=== PATIENT | female | born 1980 | race Caucasian/White ===

== ENCOUNTER 2016-12-17 18:03 | Inpatient (IN) | payer OTHER ==
[2016-12-17 19:49] LABS: % IMMATURE GRANULYOCYTES 0.2 % (0.0-1.1); ABSOLUTE IMMATURE GRANULOCYTES 0.02 10^3/uL (0.00-0.10); ADD DIFF? NO; ADD MORPH? NO; ADD SCAN? NO; ATYPICAL LYMPHOCYTE FLAG 0 (0-99); FRAGMENT RBC FLAG 0 (0-99); HEMATOCRIT 42.3 % (38.0-47.0); HEMOGLOBIN 14.4 g/dL (12.6-16.3); LEFT SHIFT FLG 0 (0-99); LIPEMIA HEMOLYSIS FLAG 90 (0-99); MEAN CELL HEMOGLOBIN 30.3 pg (27.9-34.1); MEAN CELL VOLUME 89.1 fL (81.5-99.8); MEAN PLATELET VOLUME 9.7 fL (8.7-11.7); PLATELET CLUMPS FLAG 0 (0-99); PLATELET COUNT 324 10^3/uL (150-400); RED BLOOD CELL COUNT 4.75 10^6/uL (4.18-5.33); RED CELL DISTRIBUTION WIDTH 12.7 % (11.5-15.2)
[2016-12-17 20:05] LABS: ANION GAP 11 mEq/L (8-16); CALCIUM 10.4 mg/dL (8.5-10.4); CARBON DIOXIDE 23 mEq/l (22-31); CHLORIDE 105 mEq/L (97-110); CREATININE 0.9 mg/dL (0.6-1.0); ETHANOL SERUM < 10 mg/dL (0-10); GLOMERULAR FILTRATION RATE > 60; GLUCOSE 116 mg/dL (70-100); POTASSIUM 3.7 mEq/L (3.5-5.2); SALICYLATE < 1.0 mg/dL (2.0-20.0); SODIUM 139 mEq/L (134-144)
--- NOTE | 2016-12-17 22:19 | EDPHY ---
Mental Health General Previous Psychiatric History: previous suicide attempt, substance abuse, depression Smoking Status: Never smoked Time Patient Placed on M1 Hold: 19:45 Time of Transfer of Care: 01:00 Course: patient remained stable over course of my shift, no additional interventions, eval by mental health Narrative: CHIEF COMPLAINT: euphoria, depression, substance abuse HISTORY OF PRESENT ILLNESS: 36-year-old female presents emergency department reporting auditory and visual hallucinations. Patient reports I do not want to live anymore." Patient reports previous suicide attempt 1 year ago. Patient states she drinks alcohol regularly and has been taking 6-8 Benadryl every day. She reports this is not in a suicide attempt. Patient reports she takes her Prozac as prescribed. She denies suicidal thoughts at this time, denies homicidal thoughts. Patient reports feeling like she cannot think straight. She denies any recent cough or cold, no abdominal pain or chest pain. REVIEW OF SYSTEMS: A comprehensive 10 point review of systems is otherwise negative aside from elements mentioned in the history of present illness. Physical Exam Gen: Alert and Oriented, NAD HEENT: PERRL, moist mucous membranes NECK: no meningismus CV: regular rate and regular rhythm PULM: CTAB, no wheezes ABDOMEN: soft, non tender to palpation, BS present BACK: No CVA tenderness NEURO: Neurologically grossly intact EXTREMITIES: normal appearing SKIN: no rash or break in skin on exposed skin PSYCH: Flat affect, denies suicidal ideations, denies homicidal ideations. She reports auditory and visual hallucinations. (Maggy Lopez) Medical Decision Makin-report passed on to Dr. Hogan at the end of my shift. Evaluation is complete and they are seeking placement. (Maggy Lopez) 0701: No acute events overnight. Patient signed over to Dr. Browne at 7am. Patient here on M1 hold suicidal ideation, substance abuse, auditory and visual hallucinations. History of depression. Patient is pending placement. (Mauri Hogan) 0700 Patient signed out to me from Dr. Hogan pending placement. 1040 patient accepted to [address] [place] [address] dagmar onofre. The EMTALA has been completed by me (Michael Browne) - Objective Vital Signs: Initial Vital Signs Temperature (C) 36.2 C 12/17/16 18:07 Heart Rate 130 H 12/17/16 18:07 Respiratory Rate 18 12/17/16 18:07 Blood Pressure 153/100 H 12/17/16 18:07 O2 Sat (%) 97 12/17/16 18:07 O2 Delivery Mode Room Air Allergies/Adverse Reactions: Penicillins Allergy (Verified 12/17/16 18:06) Home Medications: Medication Instructions Recorded Prozac 10 MG (*) 12/17/16 Medications Given: Discontinued Medications Lorazepam (Ativan) 1 mg PO EDNOW ONE Stop: 12/18/16 08:05 Last Admin: 12/18/16 08:12 Dose: 1 mg Laboratory Results: Laboratory Results 12/17/16 19:35 12/17/16 19:35 12/17/16 12/17/16 22:27 19:35 Total Bilirubin 0.7 mg/dL mg/dL (0.1-1.4) Conjugated Bilirubin 0.6 mg/dL H mg/dL (0.0-0.5) Unconjugated Bilirubin 0.1 mg/dL mg/dL (0.0-1.1) AST 100 IU/L H IU/L (14-46) ALT 93 IU/L H IU/L (9-52) Alkaline Phosphatase 108 IU/L IU/L (38-126) Total Protein 7.5 g/dL g/dL (6.3-8.2) Albumin 4.3 g/dL g/dL (3.5-5.0) TSH 1.590 uIU/mL uIU/mL (0.465-4.680) Urine Opiates Screen NEGATIVE (NEGATIVE) Urine Barbiturates NEGATIVE (NEGATIVE) Ur Phencyclidine Scrn NEGATIVE (NEGATIVE) Ur Amphetamine Screen NEGATIVE (NEGATIVE) U Benzodiazepines Scrn NEGATIVE (NEGATIVE) Urine Cocaine Screen NEGATIVE (NEGATIVE) U Marijuana (THC) Screen NEGATIVE (NEGATIVE) Departure - Departure Disposition: [facility] IP Clinical Impression: Acute psychosis, Polysubstance abuse Condition: Fair Referrals: NONE *PRIMARY CARE P,. [Primary Care Provider] - As per Instructions
[2016-12-18 01:52] LABS: ALBUMIN 4.3 g/dL (3.5-5.0); BILIRUBIN,TOTAL 0.7 mg/dL (0.1-1.4); BILIRUBIN-CONJUGATED 0.6 mg/dL (0.0-0.5); BILIRUBIN-UNCONJUGATED 0.1 mg/dL (0.0-1.1); TOTAL PROTEIN 7.5 g/dL (6.3-8.2)
[2016-12-18] MEDS ORDERED: LORazepam 1 MG TAB PO ONE (08:04)
[2016-12-18] MEDS ORDERED: MAGNESIUM HYDROXIDE 30 ML UDCUP PO PRN (14:34)
[2016-12-18] MEDS ORDERED: OLANZapine DISINTEGR 10 MG TAB PO PRN ×2 (14:34→15:09)
[2016-12-18] MEDS ORDERED: MAG HYDROX/AL HYDROX/SIMETH 30 ML UDCUP PO PRN (14:34)
[2016-12-18] MEDS ORDERED: ACETAMINOPHEN 325 MG TAB PO PRN (14:34)
[2016-12-18] MEDS ORDERED: LORazepam 0.5 MG TAB PO PRN ×2 (14:34→15:09)
[2016-12-18] MEDS ORDERED: NICOTINE POLACRILEX 2 MG GUM B PRN ×2 (14:34→15:09)
[2016-12-18] MEDS: diphenhydrAMINE 25 MG CAP PO SCH (20:23)
[2016-12-18] MEDS: POTASSIUM CITRATE 10 MEQ TAB PO SCH (20:23)
[2016-12-18] MEDS ORDERED: POTASSIUM CITRATE 10 MEQ TAB PO SCH (21:00)
[2016-12-18] MEDS ORDERED: diphenhydrAMINE 25 MG CAP PO SCH (22:00)
[2016-12-19] MEDS: diphenhydrAMINE 25 MG CAP PO SCH (06:42)
[2016-12-19] MEDS ORDERED: PANTOPRAZOLE SODIUM 40 MG TAB PO SCH (09:00)
[2016-12-19] MEDS ORDERED: FLUoxetine 20 MG CAP PO SCH (09:00)
[2016-12-19] MEDS ORDERED: FLUoxetine 10 MG CAP PO SCH (09:00)
[2016-12-19] MEDS ORDERED: PROMETHAZINE HCL 25 MG TAB PO PRN (12:50)
[2016-12-19] MEDS ORDERED: PROMETHAZINE HCL 25 MG SUPPR PR PRN (12:50)
[2016-12-19] MEDS ORDERED: THIAMINE HCL 100 MG TAB PO ONE (12:50)
--- NOTE | 2016-12-19 13:48 | PDHOSCONS ---
Hospitalist Consult Hospitalist Consult: Consulted service: Internal Medicine Reason for consultation: Medical evaluation Requesting physician: Dr. Judson Sheets History of present illness: Patient is a 36-year-old female who presented to the ED with auditory and visual hallucinations. Per ED report, patient said she did not want to live anymore. Patient has been drinking alcohol regularly. She also admits to consuming cough syrup and Benadryl in quantities greater than recommended over the counter. She often combines the 3 substances. She also has a previous suicide attempt 1 year ago. Patient denies any suicidal ideation currently. She refuses to talk during most of this interview, so much of the information has been obtained from her medical chart. She currently denies suicidal or homicidal ideations. She admits to feeling anxiety and stress. She admits to also taking espe-keo-jmjrgrx cough syrup, both for recreation and to help sleep. Past medical history: Chronic kidney stones Past surgical history: Kidney stone removals-lithotripsy. Medications: Prozac, dose unknown. Additionally, patient takes over-the- counter Benadryl and cough syrup at excessive doses. Allergies: Penicillin. Social history: Patient lives in [place] with her parents. She drinks alcohol regularly but is unable to quantify how much and how often. Patient consumes gdqg-pkf-qqljced sleep aids and cough syrup and admits to taking more than the recommended doses. She denies any smoking. She denies other recreational drugs. 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 Family history: Mother has MS. Review of systems: 10 point review of systems was conducted and is negative except per HPI Physical exam: General: The patient is an obese female who is lethargic but arousable and in no acute distress. HEENT: normocephalic. Mucous membranes moist. Neck: trachea midline. Abd: soft and nondistended. Musculoskeletal: Normal muscle tone and bulk. Neuro: cranial nerves II XII grossly intact. Intact gross motor and sensory function. Psych: Depressed mood/blunted affect. Skin: No pallor. Heme/lymph: No peripheral edema. Vitals: Reviewed Labs: Reviewed. Impression and plan: Accidental over ingestion of multiple substances Auditory and visual hallucinations, resolved Lethargy, secondary to over ingestion versus psychiatric disorder Major depressive disorder Mildly abnormal liver function tests Mild hyperglycemia Mild leukocytosis Hypertension, resolved -patient is currently on legal hold, awaiting to be evaluated by Behavioral specialists. -defer substance abuse counseling to be a viral health specialist. -borderline leukocytosis and hyperglycemia her likely reactive to stress from over-ingestion. -patient should get outpatient follow-up for ongoing health issues, including evaluation of mildly abnormal liver function tests. Recommendation: Patient is medically stable. Thank you for the consultation.
[2016-12-19] MEDS: FLUoxetine 10 MG CAP PO SCH (13:52)
[2016-12-19] MEDS: FLUoxetine 20 MG CAP PO SCH (13:52)
[2016-12-19] MEDS: chlordiazePOXIDE 25 MG CAP PO PRN ×3 (13:53→21:22)
[2016-12-19] MEDS: POTASSIUM CITRATE 10 MEQ TAB PO SCH ×2 (13:54→21:02)
[2016-12-19] MEDS: PANTOPRAZOLE SODIUM 40 MG TAB PO SCH (13:54)
--- NOTE | 2016-12-19 19:30 | BAPA ---
[f rep st] ADMISSION PSYCHIATRIC ASSESSMENT Corrected report IDENTIFICATION: The patient is a 36-year-old single female, who was admitted to the hospital secondary to auditory and visual hallucinations along with suicidal ideation. CHIEF COMPLAINT: The patient did not have a chief complaint. The information for this dictation was actually obtained from the patient's records secondary to the fact that the patient could not be aroused to answer questions for this evaluation. HISTORY OF PRESENT ILLNESS: As mentioned earlier, the patient came into the emergency department, reporting some auditory and visual hallucinations. While there she stated, "I don't want to live anymore." There were concerns because she had a suicide attempt approximately a year earlier. She reported that she had been using excessive amounts of alcohol, Benadryl, and dextromethorphan cough syrup. While in the emergency department, she was given her Prozac. PSYCHIATRIC HISTORY: She was first treated for a mental illness at age 17. It appears that the patient has most recently been treated for depression with Prozac. In the ER, she mentioned possibly being on other unnamed medications. Her primary care doctor is prescribing these. She has been hospitalized at [facility] in the past. She reports being diagnosed with depression and anxiety in the past. She believes bipolar disorder was ruled out in the past. She has been on Risperdal, Seroquel, and Paxil along with possibly other medications in the past. She gained weight on Seroquel, and the Paxil made her feel worse. It also appears that she had a suicide attempt approximately a 3- 4 years ago. She overdosed on Benadryl and Vodka, having to have her stomach pumped. She reports bad experiences with three psychiatrists in the past. One wanted money she did not have and one "ruined" her marriage by saying something negative about her in front of her . SUBSTANCE ABUSE HISTORY: The patient is reporting regular drinking of alcohol along with taking approximately 8 or more Benadryl one or more times a day and drinking dextromethorphan cough syrup on a daily basis. She started drinking at age 20. She had a few years of sobriety. She had three DUIs. She has been drinking cough syrup for the last few months. She has also abused cocaine, methamphetamine, and cannabis. She has been to [place] and at least one other substance abuse treatment program. Her toxicology screen was negative in the ER. FAMILY PSYCHIATRIC HISTORY: Paternal uncle committed suicide. A paternal aunt is a "wilson of the state." MEDICAL HISTORY: The patient has allergies to penicillin. It appears she has a history of gastroesophageal reflux disease. She was taking Zantac and Prilosec in the community. She also has a history of chronic kidney stones and irritable bowel syndrome. LABORATORY VALUES: Her CBC shows an elevated white blood count of 10.47. Her CMP showed a glucose of 116; however, this was not a fasting glucose. Her AST was elevated at 100 and ALT was elevated at 93. test showed that she was not ; it was negative. Her toxicology screen showed nothing of note. REVIEW OF SYSTEMS: She was reporting that she could not think straight. She reports anxiety with panic attacks. She has poor sleep. She denies going days without sleep. She has racing thoughts. She has a history of cutting and possibly other self injurious behaviors. She also was reporting auditory and visual hallucinations; however, it is unknown how long she has been experiencing these.She was observed to have a flat affect, diminished interest, diminished pleasure, hopelessness, worthlessness, withdrawal, sad mood, and psychomotor retardation in the ER. Later in the date on this unit she reported hypersexuality. She actually was posting information on [employer] sites after ten years of celibacy. SOCIAL HISTORY: She has two half sisters and one full sister. She is . She has no children. She has a dog and two cats. She has been living with her parents in [place]. She reports her mother has MS and her parents argue a lot. She has a BA in psychology. She works at [employer]. She worked at [employer] for 6 years. She spent five months in correction after getting her third DUI ( violation of probation). She has no friends. She denies any abuse. She spends her non work hours watching television. MENTAL STATUS EXAMINATION: The patient is a female with short black hair who was found lying in her bed. When this technical publications writer approached her and spoke the patient's name, the patient did say "huh"; however, she did not open her eyes, she did not get up, and she had no further responses after that. IMPRESSION: This is a 36-year-old single female reportedly with a history of depression who was being treated with Prozac. The patient also has a history of substance abuse of srny-xsa-qoboltn substances including dextromethorphan and Benadryl. She also has abused alcohol, cannabis, cocaine, and methamphetamine. It is unclear how long the patient has been using substances nor is it clear how much she has been using on a daily basis. She did come into the hospital secondary to some suicidal ideation and hallucinations. The patient is very sedated at this point in time. She was given Zyprexa, Ativan, and Benadryl today, which along with her previous Benadryl, probably is responsible for her current sedation. This made it impossible to talk to the patient to get any history. She does have a history of behaviors that are suggestive of borderline personality disorder, so she might be exaggerating her level of sedation. DIAGNOSES: Stephens I: 1. Unspecified depressive disorder. 2. Polysubstance Dependence Stephens II: Rule out Borderline Personality Disorder Stephens III: 1. Status post overdose anticholinergic medication. 2. Allergy to penicillin. Stephens IV: Difficulties secondary to addiction. Stephens V: Global Assessment of Functioning equal to 20. CRITERIA FOR ADMISSION: The patient does meet criteria for admission to the hospital given she was reporting some suicidal ideation along with hallucinations. PLAN OF TREATMENT: At this time, we will try to minimize medications, especially anything that is sedating, given the patient is most likely withdrawing from the anticholinergic effects of Benadryl along with the dextromethorphan and alcohol. She will be put on a CIWA protocol to monitor for any alcohol withdrawal symptoms, and she will be put on seizure precautions to monitor her for any seizures. Actually, this will be part of the alcohol withdrawal protocol. The DMT also can cause seizures when someone is going through withdrawal. We will monitor her for any type of psychotic symptoms given that all 3 substances that she was using are potentially culprits- cause psychosis. It is unclear if the patient has any type of biological psychotic disorder. /[id number]/MODL Maryan WT, 12/21/16, virgil MCKEON
[2016-12-19] MEDS: THIAMINE HCL 100 MG TAB PO SCH (19:42)
[2016-12-19] MEDS: FOLIC ACID 1 MG TAB PO SCH (19:42)
[2016-12-19] MEDS: OLANZapine DISINTEGR 5 MG TAB PO PRN (22:15)
[2016-12-19] MEDS ORDERED: OLANZapine DISINTEGR 5 MG TAB PO ONE (23:09)
[2016-12-19] MEDS ORDERED: OLANZapine DISINTEGR 5 MG TAB ONE (23:15)
[2016-12-19] MEDS ORDERED: OLANZapine 5 MG TAB PO PRN (23:18)
[2016-12-20] MEDS ORDERED: QUEtiapine FUMARATE 300 MG TAB PO ONE (01:25)
[2016-12-20] MEDS: POTASSIUM CITRATE 10 MEQ TAB PO SCH ×2 (12:35→21:21)
[2016-12-20] MEDS: FLUoxetine 20 MG CAP PO SCH (12:35)
[2016-12-20] MEDS: FLUoxetine 10 MG CAP PO SCH (12:35)
[2016-12-20] MEDS: PANTOPRAZOLE SODIUM 40 MG TAB PO SCH (12:36)
[2016-12-20] MEDS: FOLIC ACID 1 MG TAB PO SCH (12:36)
[2016-12-20] MEDS: THIAMINE HCL 100 MG TAB PO SCH (12:36)
[2016-12-20] MEDS: MULTIVITAMINS 1 EACH TAB PO SCH (12:53)
[2016-12-20] MEDS: chlordiazePOXIDE 25 MG CAP PO PRN (13:35)
[2016-12-20] MEDS ORDERED: OLANZapine 5 MG TAB PO ONE (14:00)
[2016-12-20] MEDS ORDERED: OLANZapine DISINTEGR 10 MG TAB PO PRN (15:48)
[2016-12-20] MEDS ORDERED: QUEtiapine FUMARATE 300 MG TAB PO PRN (16:56)
--- NOTE | 2016-12-20 18:00 | SOAPPROG ---
SOAP Progress Note Assessment/Plan: Assessment: Patient with unspecified schizophrenia spectrum and other psychotic disorder along with other hallucinogen Use Disorder, severe, in forced remission a controlled environment, alcohol use disorder, severe, in forced remission in a controlled environment, and a rule out of borderline personality disorder reporting no reason to live. She wants to be allowed to leave and end it all. She was noted to be crying and banging her head against the wall when she could not find her brush. She revealed a history of self abuse. She is not safe to leave. She reports auditory and visual hallucinations, but there is no evidence of responding to internal stimuli. The hallucinations may be a by- product of substance withdrawal. She did get placed on emergency medications and in seclusion last night due to agitation. She was banging her head against the window. Plan: Will place on line of sigh for 24 hours due to self harming behaviors. Will try to her old records (parents agreed to bring them in on their next visit). Will start Abilify for mood and hallucinations. Went over the risks and benefits , which she understand (main concern weight gain). Will use prn Zyprexa Zydis for agitation, aggression, and psychosis. Will continue prn Seroquel for sleep if need tonight. Went over the risks and benefits (concerned about weight gain). Encouraged to be out of bed as much as possible. She spends much of her time sleeping. Continue suicide precautions. Recommend an inpatient dual diagnosis program to help her with her substance abuse problems and to better clarify her psychiatric issues. This appears to be a bipolar type mood disorder; therefore, will focus on mood stabilizers and stop the antidepressant. 12/20/16 17:47 12/20/16 18:07 Subjective: She reports she feels hopeless and depressed. She was knocking her head because she can't find her brush. She reports perviously cutting herself with a lip stick container and a mirror. She reports a desire "to go find someone to fuck and get high or drunk and hope to just ." Depression - 8-9/10 (10 the worst) . Anxiety 8-9/10. Sleep- okay last night with Seroquel. +racing thoughts. Objective: Vital Signs Temp Pulse Resp BP Pulse Ox 36.0 C 140 H 20 130/70 H 90 L 12/19/16 21:00 12/20/16 13:47 12/20/16 13:47 12/20/16 13:47 12/20/16 13:47 female sitting on the bed rocking back and forth. Poor eye contact. Speech- depressed tone. Mood- "depressed." Affect- blunted. Thought Process- goal directed. Thought Content - passive SI. No HI. +AH/VH, but no RIS. Insight and judgment - poor. - Time Spent With Patient Time Spent With Patient: 60 minutes - Pending Discharge Pending Discharge Within 24 Hours: No Pending Discharge Within 48 Hours: No ICD10 Worksheet Patient Problems: Problems Problem Status Onset Acute psychosis Acute Polysubstance abuse Acute
[2016-12-20] MEDS: ARIPiprazole 10 MG TAB PO SCH (19:27)
--- NOTE | 2016-12-21 11:21 | SOAPPROG ---
SOAP Progress Note Assessment/Plan: Assessment: 36yo DWF who lives with her parents, and is employed, with a long hx of depression, but also substance use, most recently abusing dextromethorphan, diphenhydramine and alcohol. She self -presented to ED reporting AH/VH and SI, was placed on an M1, and admitted to for stabilization. Since admission, on 12/19 late night she required S/R and Emeds for agitation and self-harming behavior of banging head. Then she was placed on LOS due to inability to contract for safety. Sabina II features noted. Was started on Abilify 10mg hs and prozac was d/cd on admission due to concerns for possible underlying bipolar spectrum mood disorder. 12/21/16 13:38 Per staff, pt slept 5.5hr, but spending most of time in bed. Wanting prn meds to stay asleep and help with anxiety. 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 Pt will only accept Chocolate milk and dangelo Ensure, but missed breakfast today. On eval, reports +depr, "Tired", and having "no hope anymore". states she is "just going through the motions...my life is so shitty...I hate living with my parents, they bicker all the time..." States she has had chronic low self-esteem , never feeling as worthy as others, feels "ugly and fat" and again reiterating she has "no hope", feels "my situation will never change, I can't get out of it ". When asked to clarify, pt responded "everything, being me." Asks for prn to "shut off my mind", but unable to clarify what to shut off, "it' s a blur". Did volunteer hx of depression, but noting more recently "periods of going really fast, feeling reckless, wanting to act on something stupid, screw anyone , and spending money...I called the tanner rotary drum continuous process on myself in the past". Clinically did not appear manic or hypomanic. Unable to provide clear history of significant period of sobriety except perhaps "4 or 5 months a few years ago", after returned home to parents following a relapse while at a sober living facility in [place] and got "kicked out" from the program. Reports was on antidepr med during this time, while in and out of subst treatment. Admits concern about weight, but adds that she really doesn't care anymore about this or anything else. Long pause before she unconvincingly contracted for safety as she continued to endorse no hope and no reason to live. Has not been present in milieu, not attending groups or coming out for meals. MSE: lying in bed, eyes closed through most of interview, opening only with prompt and request for some eye contact. eventually sat up briefly during interview but maintained downcast gaze. low vol/rate speech, mood "tired" and depressed, affect depressed/dysphoric and intermittently tearful. thoughts- little spontaneity, self-deprecating, linear without delusions, denied current AH/VH but endorsed experiencing some this AM, +SI passive, but only after long delay reported "I won't try to hurt myself in here". i/j-impaired. cognition grossly intact. PLAN: cont on M1. likely will need STC cont LOS for another 24hr, pending increased visibility in milieu and consistent conrad for safety. concern for acting out behavior present, and was on Emeds and S/R <48hr ago. will encourage group attendance and meals. change zypr 10mg prn to 5mg prn. cont Abilify 10mg hs as started recently will recheck labs, incl Mg and Phos, repeat LFT, also consider d/c Potassium bid , unclear why on this- will ask for hospitalist input on pt not eating and her K + bid Cont on CIWA Objective: Vital Signs Temp Pulse Resp BP Pulse Ox 36.9 C 64 12 122/71 H 94 12/21/16 06:00 12/21/16 06:00 12/21/16 06:00 12/21/16 06:00 12/21/16 06:00 Medications Generic Name Dose Route Start Last Admin Trade Name Freq PRN Reason Stop Dose Admin Folic Acid 1 mg 12/19/16 16:00 12/20/16 12:36 Folic Acid PO 12/21/16 23:59 1 mg DAILY CYNTHIA Promethazine HCl 25 mg 12/19/16 12:50 Phenergan Rectal WA 06/17/17 12:49 TID PRN Nausea/Vomiting, Can't Take PO Pantoprazole Sodium 40 mg 12/19/16 09:00 12/20/16 12:36 Protonix PO 06/17/17 08:59 40 mg DAILY CYNTHIA Potassium Citrate 10 meq 12/18/16 21:00 12/20/16 21:21 Urocit-K PO 06/16/17 20:59 10 meq BID CYNTHIA Aripiprazole 10 mg 12/20/16 20:00 12/20/16 19:27 Abilify PO 06/18/17 19:59 10 mg DAILY CYNTHIA Chlordiazepoxide HCl 25 - 50 mg 12/19/16 12:50 12/20/16 13:35 Librium PO 06/17/17 12:49 50 mg Q4HRS PRN CIWA Protocol Protocol Multivitamins 1 each 12/20/16 09:00 12/20/16 12:53 Tab-A-Danyelle PO 06/18/17 08:59 1 each DAILY CYNTHIA Olanzapine 10 mg 12/20/16 15:48 12/20/16 19:28 Zyprexa Zydis PO 06/18/17 17:59 10 mg Q4 PRN Agitation, Psychosis Thiamine HCl 100 mg 12/21/16 09:00 Vitamin B-1 PO 06/19/17 08:59 DAILY CYNTHIA Promethazine HCl 25 mg 12/19/16 12:50 Phenergan PO 06/17/17 12:49 TID PRN Nausea/Vomiting, Use 2nd Nicotine Polacrilex 2 mg 12/18/16 15:09 Nicorette B 06/16/17 14:33 Q1HR PRN Nicotine withdrawal Laboratory Tests 12/17/16 12/17/16 12/17/16 19:35 19:35 19:35 WBC 10.47 H Hgb 14.4 Hct 42.3 MCV 89.1 Plt Count 324 Sodium 139 Potassium 3.7 Chloride 105 Carbon Dioxide 23 Anion Gap 11 BUN 10 Creatinine 0.9 Calcium 10.4 Total Bilirubin AST ALT Alkaline Phosphatase TSH Beta HCG, Qual NEGATIVE 12/17/16 19:35 WBC Hgb Hct MCV Plt Count Sodium Potassium Chloride Carbon Dioxide Anion Gap BUN Creatinine Calcium Total Bilirubin 0.7 AST 100 H ALT 93 H Alkaline Phosphatase 108 TSH 1.590 Beta HCG, Qual - Pending Discharge Pending Discharge Within 24 Hours: No Pending Discharge Within 48 Hours: No ICD10 Worksheet Patient Problems: Problems Problem Status Onset Acute psychosis Acute Polysubstance abuse Acute
[2016-12-21] MEDS: OLANZapine DISINTEGR 5 MG TAB PO PRN ×2 (13:14→18:04)
[2016-12-21] MEDS: MULTIVITAMINS 1 EACH TAB PO SCH (13:15)
[2016-12-21] MEDS: POTASSIUM CITRATE 10 MEQ TAB PO SCH (13:15)
[2016-12-21] MEDS: THIAMINE HCL 100 MG TAB PO SCH (13:16)
[2016-12-21] MEDS: FOLIC ACID 1 MG TAB PO SCH (13:16)
[2016-12-21] MEDS: ARIPiprazole 10 MG TAB PO SCH (13:16)
[2016-12-21] MEDS: PANTOPRAZOLE SODIUM 40 MG TAB PO SCH (13:16)
--- NOTE | 2016-12-21 14:18 | HOSPPROG ---
Hospitalist Progress Note Assessment/Plan: 36 yo female, new to me today, admitted to due to suicidal ideation, depression, poly substance abuse. Known prior h/o suicidal ideation and prior ETOH abuse. 1. Elevated LFT's 2/2 ETOH and substance abuse. Possible hepatitis though no evidence of jaundice. Will recheck LFT's and check hepatitis panel 2. K supplement; reason unclear. Will stop 3. Depression: continues and under treatment 4. ETOH abuse and substance abuse. no signs of withdrawal. Continue librium as you have ordered. Subjective: Depressed. Does not answer questions with much information. Denies fever, cough, N. vomiting Objective: Vital Signs Temp Pulse Resp BP Pulse Ox 36.9 C 64 12 122/71 H 94 12/21/16 06:00 12/21/16 06:00 12/21/16 06:00 12/21/16 06:00 12/21/16 06:00 - Physical Exam Constitutional: chronically ill appearing, other (depressed) Eyes: PERRL, anicteric sclera Ears, Nose, Mouth, Throat: moist mucous membranes, hearing normal Cardiovascular: regular rate and rhythym, no murmur, rub, or gallop Respiratory: no respiratory distress, no rales or rhonchi, clear to auscultation Gastrointestinal: normoactive bowel sounds, soft, non-tender abdomen, no palpable masses, other (no organomegaly) Skin: warm Musculoskeletal: full muscle strength Neurologic: AAOx3, CN II-XII Intact Psychiatric: depressed ICD10 Worksheet Patient Problems: Problems Problem Status Onset Acute psychosis Acute Polysubstance abuse Acute
[2016-12-21] MEDS: chlordiazePOXIDE 25 MG CAP PO PRN ×3 (14:35→22:46)
[2016-12-21] MEDS: NICOTINE 21 MG/24 HR PATCH TD SCH (16:17)
[2016-12-21] MEDS ORDERED: QUEtiapine FUMARATE 300 MG TAB PO ONE (21:00)
[2016-12-22] MEDS: MULTIVITAMINS 1 EACH TAB PO SCH (11:21)
[2016-12-22] MEDS: THIAMINE HCL 100 MG TAB PO SCH (11:21)
[2016-12-22] MEDS: NICOTINE 21 MG/24 HR PATCH TD SCH (11:21)
[2016-12-22] MEDS: ARIPiprazole 10 MG TAB PO SCH (11:21)
[2016-12-22] MEDS: PANTOPRAZOLE SODIUM 40 MG TAB PO SCH (11:21)
[2016-12-22] MEDS: chlordiazePOXIDE 25 MG CAP PO PRN ×4 (12:23→22:55)
[2016-12-22 12:31] LABS: ALANINE AMINOTRANSFERASE 85 IU/L (9-52); ALBUMIN 3.6 g/dL (3.5-5.0); ALKALINE PHOSPHATASE 82 IU/L (38-126); ANION GAP 11 mEq/L (8-16); ASPARTATE AMINOTRANSFERASE 65 IU/L (14-46); BILIRUBIN,TOTAL 0.6 mg/dL (0.1-1.4); CALCIUM 9.4 mg/dL (8.5-10.4); CARBON DIOXIDE 23 mEq/l (22-31); CHLORIDE 105 mEq/L (97-110); CREATININE 0.8 mg/dL (0.6-1.0); GLOMERULAR FILTRATION RATE > 60; GLUCOSE 86 mg/dL (70-100); MAGNESIUM 1.8 mg/dL (1.6-2.3); POTASSIUM 3.5 mEq/L (3.5-5.2); SODIUM 139 mEq/L (134-144); TOTAL PROTEIN 6.2 g/dL (6.3-8.2)
--- NOTE | 2016-12-22 15:17 | SOAPPROG ---
SOAP Progress Note Assessment/Plan: Assessment: Plan: 12/22/16 15:19 Appears depressed. On Abilify. Denies SI and very shortly after cuts wrists. Very characterological. Utilizing help-seeking, help-rejecting behaviors. Very stuck. Will [facility], though will d/c CIWA tomorrow unless much more prominent withdrawal becomes apparent. Will call pt's father who has called numerous times to schedule an appointment with me to talk about pt. Subjective: Pt seen, discussed with staff, chart reviewed. She is a 36 y/o CF with hx of mood problems, personality/character issues and substance abuse. Has been on LOS due to inability to contract for safety, SI and hx of cutting. She has been isolating, spending most of her time in bed. Refuses to go to groups. Has refused all meals in past 24 hours. Makes dramatic statements about "wanting to make it all end" and "I just want to go away." Insisted she could keep herself safe earlier so I d/c'd her LOS. Before the RN could execute the order, she went to the bathroom, pulled the curtain and made numerous cuts on both wrists with a small piece of plastic she found. Appreciate Dr. Meza' input. Additional labs all nl. Remains on CIWA scoring for tachycardia and anxiety. Clearly sedate with 25mg of Librium. Objective: Vital Signs Temp Pulse Resp BP Pulse Ox 36.9 C 112 H 16 92/45 L 92 12/22/16 14:00 12/22/16 14:00 12/22/16 14:00 12/22/16 14:00 12/22/16 14:00 Laboratory Results 12/22/16 07:10 MSE: Lying in bed, refuses to open eyes or speak. I returned three times before she would talk. Once she did, she was fairly guarded, though interactive. Disheveled. Affect is blunted, dysphoric. Mood is "bad." TP linear. TC reveals no psychosis. Denied active SI or intent to harm herself to me. - Time Spent With Patient Time Spent With Patient: 25" - Pending Discharge Pending Discharge Within 24 Hours: No Pending Discharge Within 48 Hours: No ICD10 Worksheet Patient Problems: Problems Problem Status Onset Acute psychosis Acute Polysubstance abuse Acute
[2016-12-22] MEDS: OLANZapine DISINTEGR 5 MG TAB PO PRN ×2 (15:32→21:46)
[2016-12-22] MEDS ORDERED: traZODone 100 MG TAB PO ONE (21:30)
[2016-12-23] MEDS: ARIPiprazole 10 MG TAB PO SCH (10:18)
[2016-12-23] MEDS: PANTOPRAZOLE SODIUM 40 MG TAB PO SCH (10:18)
[2016-12-23] MEDS: NICOTINE 21 MG/24 HR PATCH TD SCH (10:19)
[2016-12-23] MEDS: THIAMINE HCL 100 MG TAB PO SCH (10:19)
[2016-12-23] MEDS: MULTIVITAMINS 1 EACH TAB PO SCH (10:27)
--- NOTE | 2016-12-23 11:45 | SOAPPROG ---
SOAP Progress Note Assessment/Plan: Assessment: Plan: 12/22/16 15:19 Appears depressed. On Abilify. Denies SI and very shortly after cuts wrists. Very characterological. Utilizing help-seeking, help-rejecting behaviors. Very stuck. Will [facility], though will d/c CIWA tomorrow unless much more prominent withdrawal becomes apparent. Will call pt's father who has called numerous times to schedule an appointment with me to talk about pt. 12/23/16 11:45 Remains regressed, inactive. Continues to employ help-seeking, help-rejecting behaviors. Will [facility] for now, institute behavioral plan. Subjective: Pt seen, discussed with staff. States she doesn't want to talk to me. I described for her our plan to have her out of her room to eat meals and then to stay at least an hour afterward. She doesn't reply but when I ask her if she needs anything, she states she wants a sleeping pill so she can take it right now and go back to sleep for the rest of the day. Remains on LOS. No further SIB. Objective: Vital Signs Temp Pulse Resp BP Pulse Ox 36.6 C 110 H 24 H 84/55 L 92 12/23/16 10:00 12/23/16 10:00 12/22/16 22:48 12/23/16 10:00 12/23/16 10:00 Laboratory Results 12/22/16 07:10 MSE: Standing at mirror applying makeup. Makes minimal eye contact. Affect is blunted, stable. Mood is "bad." TP abbreviated, possibly blocked. TC reveals self-report of "whispers" that are non-command in nature. Guarded about SI, does not answer with me. - Time Spent With Patient Time Spent With Patient: 15" - Pending Discharge Pending Discharge Within 24 Hours: No Pending Discharge Within 48 Hours: No ICD10 Worksheet Patient Problems: Problems Problem Status Onset Acute psychosis Acute Polysubstance abuse Acute
[2016-12-23] MEDS: OLANZapine DISINTEGR 5 MG TAB PO PRN ×3 (12:56→21:03)
[2016-12-23] MEDS ORDERED: LORazepam 1 MG TAB ONE (14:21)
[2016-12-23] MEDS ORDERED: OLANZapine 10 MG TAB PO ONE (14:30)
[2016-12-23] MEDS ORDERED: LORazepam 1 MG TAB PO ONE (14:30)
[2016-12-23] MEDS: traZODone 100 MG TAB PO SCH (20:57)
[2016-12-23] MEDS: QUEtiapine FUMARATE 100 MG TAB PO PRN (22:23)
[2016-12-23] MEDS ORDERED: QUEtiapine FUMARATE 100 MG TAB PO ONE (23:30)
[2016-12-24] MEDS: OLANZapine DISINTEGR 5 MG TAB PO PRN (01:50)
[2016-12-24] MEDS: MULTIVITAMINS 1 EACH TAB PO SCH (09:10)
[2016-12-24] MEDS: ARIPiprazole 10 MG TAB PO SCH (09:10)
[2016-12-24] MEDS: PANTOPRAZOLE SODIUM 40 MG TAB PO SCH (09:10)
[2016-12-24] MEDS: NICOTINE 21 MG/24 HR PATCH TD SCH (09:10)
[2016-12-24] MEDS: THIAMINE HCL 100 MG TAB PO SCH (09:10)
[2016-12-24] MEDS: QUEtiapine FUMARATE 50 MG TAB PO PRN ×3 (11:16→20:02)
--- NOTE | 2016-12-24 11:19 | SOAPPROG ---
SOAP Progress Note Assessment/Plan: Assessment: Plan: 12/22/16 15:19 Appears depressed. On Abilify. Denies SI and very shortly after cuts wrists. Very characterological. Utilizing help-seeking, help-rejecting behaviors. Very stuck. Will [facility], though will d/c CIWA tomorrow unless much more prominent withdrawal becomes apparent. Will call pt's father who has called numerous times to schedule an appointment with me to talk about pt. 12/23/16 11:45 Remains regressed, inactive. Continues to employ help-seeking, help-rejecting behaviors. Will [facility] for now, institute behavioral plan. 12/24/16 11:20 Behavioral plan effective in getting pt to interact. She seems genuine in her desire for change. The character of her reported AH's is convincing for MDD with psychosis. Will continue Abilify 10mg, monitor behaviors per plan. Will provide information on ECT, consider as a possible next step. Subjective: Pt seen, discussed with staff at length in morning rounds. All agree on a "reverse room" protocol to encourage pt to interact. I spoke with her father yesterday by phone and he voices ongoing concern that she is very depressed and suicidal. She states to me today, "I just want to leave and find someone to have sex with, do drugs and drink alcohol." She states she has not had an intimate relationship of any kind in ten years and laments this. She reports getting no pleasure from life and is "just going through the motions." She reports chronic depression that is not made better by antidepressants. She feels helpless and hopeless and states, "I can't go on like this any more." She also reports the emergence of AH's over the past two weeks. She hears a muffled voice telling her she is worthless and "a really bad person." This coincides with a significant downturn in her mood. Objective: Vital Signs Temp Pulse Resp BP Pulse Ox 36.4 C 114 H 16 150/66 H 95 12/24/16 02:27 12/24/16 02:27 12/24/16 02:27 12/24/16 02:27 12/24/16 02:27 Laboratory Results 12/22/16 07:10 MSE: Anxious, rocking, but cooperative and interactive. Speech is nl. Affect is constricted, anxious, dysphoric. Mood is "depressed, terrible." TP linear. TC reveals ongoing AH's. - Time Spent With Patient Time Spent With Patient: 35" - Pending Discharge Pending Discharge Within 24 Hours: No Pending Discharge Within 48 Hours: No ICD10 Worksheet Patient Problems: Problems Problem Status Onset Acute psychosis Acute Polysubstance abuse Acute
[2016-12-24] MEDS ORDERED: LORazepam 1 MG TAB PO ONE (13:00)
[2016-12-24] MEDS: traZODone 100 MG TAB PO SCH ×2 (20:02→20:03)
[2016-12-24] MEDS: ACETAMINOPHEN 325 MG TAB PO PRN (21:40)
--- NOTE | 2016-12-25 12:34 | SOAPPROG ---
SOAP Progress Note Assessment/Plan: Assessment: Plan: 12/22/16 15:19 Appears depressed. On Abilify. Denies SI and very shortly after cuts wrists. Very characterological. Utilizing help-seeking, help-rejecting behaviors. Very stuck. Will [facility], though will d/c CIWA tomorrow unless much more prominent withdrawal becomes apparent. Will call pt's father who has called numerous times to schedule an appointment with me to talk about pt. 12/23/16 11:45 Remains regressed, inactive. Continues to employ help-seeking, help-rejecting behaviors. Will [facility] for now, institute behavioral plan. 12/24/16 11:20 Behavioral plan effective in getting pt to interact. She seems genuine in her desire for change. The character of her reported AH's is convincing for MDD with psychosis. Will continue Abilify 10mg, monitor behaviors per plan. Will provide information on ECT, consider as a possible next step. 12/25/16 12:34 Improved today. Will d/c reverse room protocol to allow pt to voluntarily comply. This will limit further regression and infantilization. If she does not comply and continues to self-harm or isolate, will reinstate either reverse room or LOS as appropriate. Subjective: Pt seen, discussed with staff. Reports feeling "a little better" today. Slept in her room until 1100, did not eat breakfast. She states to me now that she will get up and sit in the day room and eat lunch. Interactive and pleasant with me. No further SIB. Objective: Vital Signs Temp Pulse Resp BP Pulse Ox 36.8 C 97 14 101/57 L 90 L 12/25/16 06:52 12/25/16 06:52 12/25/16 06:52 12/25/16 06:52 12/25/16 06:52 Laboratory Results 12/22/16 07:10 MSE: Moderately anxious, coop. Affect is blunted, dysphoric. Mood is "a little better." TP linear. TC reveals no current AH's. SI persist, but "less. " - Time Spent With Patient Time Spent With Patient: 25" - Pending Discharge Pending Discharge Within 24 Hours: No Pending Discharge Within 48 Hours: No ICD10 Worksheet Patient Problems: Problems Problem Status Onset Acute psychosis Acute Polysubstance abuse Acute
[2016-12-25] MEDS: ARIPiprazole 10 MG TAB PO SCH (12:39)
[2016-12-25] MEDS: MULTIVITAMINS 1 EACH TAB PO SCH (12:41)
[2016-12-25] MEDS: PANTOPRAZOLE SODIUM 40 MG TAB PO SCH (12:41)
[2016-12-25] MEDS: NICOTINE 21 MG/24 HR PATCH TD SCH (12:42)
[2016-12-25] MEDS: QUEtiapine FUMARATE 50 MG TAB PO PRN ×3 (12:48→22:35)
[2016-12-25] MEDS ORDERED: chlordiazePOXIDE 25 MG CAP PO ONE (14:56)
[2016-12-25] MEDS ORDERED: chlordiazePOXIDE 25 MG CAP ONE (14:59)
[2016-12-25] MEDS: traZODone 100 MG TAB PO SCH (19:01)
[2016-12-25] MEDS: QUEtiapine FUMARATE 100 MG TAB PO PRN (19:02)
[2016-12-26] MEDS: QUEtiapine FUMARATE 50 MG TAB PO PRN ×3 (04:35→16:55)
--- NOTE | 2016-12-26 10:30 | SOAPPROG ---
SOAP Progress Note Assessment/Plan: Assessment: 36yo DWF who lives with her parents, and is employed, with a long hx of depression, but also substance use, most recently abusing dextromethorphan, diphenhydramine and alcohol. She self -presented to ED reporting AH/VH and SI, was placed on an M1, and admitted to for stabilization. Since admission, on 12/19 late night she required S/R and Emeds for agitation and self-harming behavior of banging head. Then she was placed on LOS due to inability to contract for safety. Madeline II features noted. Was started on Abilify 10mg hs and prozac was d/cd on admission due to concerns for possible underlying bipolar spectrum mood disorder. 12/26/16 15:11 Per staff, slept 5hr+8hr yesterday, Pt in bed sleeping most of day today and did not attend groups. Banged head on wall last pm but stopped when informed would be secluded. Has only recently been off room-lock/behavior plan. Reporting depression, poor motivation, and occasional AH. wants to "not feel" any emotions. No plan/intent to harm self. Feels she has a "loose screw in my brain" and feels "on edge" when around peers on unit, especially one who is quite disruptive, so preferring to isolate completely. Bothered most by her "claustrophobia", +AH and feeling hopeless. MSE: cooperative, nml speech rate, low vol, mood depressed, affect restricted. expressing frustration with inconsistent rules/restrictions ie/around her use of make-up or having it in her room etc. +AH derogatory, did not appear responding to int stim presently, no active SI and no thoughts to harm others. i/j-limited/impaired PLAN: -d/c seroquel. has been using prns which add to sedation. also hx of subst abuse -zyprexa 10mg qhs -incr Abilify to 15mg qd. Doesn't feel 10mg presently helpful. consider change to HS if sedating effects. -will need to reinstate room-lock program/behav plan -pt asking about ECT option Objective: Vital Signs Temp Pulse Resp BP Pulse Ox 36.6 C 114 H 16 102/68 93 12/26/16 01:28 12/26/16 01:28 12/26/16 01:28 12/26/16 01:28 12/26/16 01:28 Laboratory Results 12/22/16 07:10 - Pending Discharge Pending Discharge Within 24 Hours: No Pending Discharge Within 48 Hours: No ICD10 Worksheet Patient Problems: Problems Problem Status Onset Acute psychosis Acute Polysubstance abuse Acute
[2016-12-26] MEDS: ARIPiprazole 10 MG TAB PO SCH (11:01)
[2016-12-26] MEDS: PANTOPRAZOLE SODIUM 40 MG TAB PO SCH (11:01)
[2016-12-26] MEDS: MULTIVITAMINS 1 EACH TAB PO SCH (11:01)
[2016-12-26] MEDS: NICOTINE 21 MG/24 HR PATCH TD SCH (11:32)
[2016-12-26] MEDS: OLANZapine 10 MG TAB PO SCH (21:13)
[2016-12-26] MEDS: ACETAMINOPHEN 325 MG TAB PO PRN (21:22)
[2016-12-26] MEDS: IBUPROFEN 600 MG TAB PO PRN (22:58)
[2016-12-26] MEDS ORDERED: TAMSULOSIN HCL 0.4 MG CAP PO SCH (23:00)
[2016-12-27] MEDS: HYDROCODONE/APAP 5/325 TAB PO PRN ×2 (01:25→12:16)
[2016-12-27] MEDS: OLANZapine 5 MG TAB PO PRN ×3 (04:37→22:45)
[2016-12-27] MEDS: IBUPROFEN 600 MG TAB PO PRN ×3 (04:37→22:40)
[2016-12-27 11:24] LABS: COLOR YELLOW; LEUKOCYTE ESTERASE,URINE 1+ (NEGATIVE); NITRITE,URINE NEGATIVE (NEGATIVE)
[2016-12-27 11:34] LABS: BACTERIA 3+ /hpf (NONE SEEN); MUCUS TRACE /lpf (NONE-1+); RBC,URINE 50-182 /hpf (0-3); WBC,URINE 15-25 /hpf (0-3)
[2016-12-27] MEDS: PANTOPRAZOLE SODIUM 40 MG TAB PO SCH (11:42)
[2016-12-27] MEDS: ARIPiprazole 10 MG TAB PO SCH (11:43)
[2016-12-27] MEDS: MULTIVITAMINS 1 EACH TAB PO SCH (11:44)
[2016-12-27] MEDS: NICOTINE 21 MG/24 HR PATCH TD SCH (13:05)
[2016-12-27] MEDS ORDERED: POLYETHYLENE GLYCOL 3350 17 GM PKT PO PRN (17:46)
[2016-12-27] MEDS: oxyCODONE IR 5 MG TAB PO PRN (18:01)
[2016-12-27] MEDS: OLANZapine 10 MG TAB PO SCH (19:22)
[2016-12-27] MEDS: SENNOSIDES/DOCUSATE SODIUM TAB PO SCH (19:22)
--- NOTE | 2016-12-27 19:29 | HOSPPROG ---
Hospitalist Progress Note Assessment/Plan: Assessment: 36 yo F p/w depression and alcohol withdraw, c/b acute abdominal pain Plan: # Abdominal pain. Acute, new problem, further w/u indicated. Potential etiologies include nephrolithiasis vs. constipation and bowel distension vs. functional abdominal pain syndrome. - reviewed outside records (11/29/[address] demonstrating R UVJ stone), confirming hx of nephrolithiasis - last US in our system 05/1512 demonstrating no stones in the setting of RUQ abd pain, suspected to either be 2/2 alcoholic hepatitis or functional pain at that time - UA w/ microscopic hematuria suggestive of stones - she reports that she has recently seen Dr. Viral Cameron and outpatient and has had R side stones on KUB, has f/u appt in the near future - recommend empirically treating for nephrolithiasis given convincing hx, exam, data - adjust pain Rx to oxycodone IR 5-15mg q6, can increase frequency to q4 if deemed appropriate by primary service, given her substance abuse hx - pre-medicate to control nausea w/ zofran PRN - add flomax to encourage stone passage - can use ibuprofen PRN if Cr normal - get BMP to ensure no e/o obstructive uropathy, get CBC to ensure no e/o significant leukocytosis indicating possible evolving infxn - if Cr elevated, recommend transferring to [facility] for IVF and evaluation for obstructive uropathy - if Cr normal, recommend continuing to encourage PO fluids # Constipation. No reported BM x 7 days, poor PO intake - empirically start senokot bid, bisacodyl PO, then de-escalate once moving bowels Above plan d/w Dr. Delacruz, and I advised that I will ask Dr. Keen to f/u lab results and clinical situation tomorrow. Subjective: worsening R abd pain and constipation, vomiting up meds, limited solid intake Objective: Vital Signs Temp Pulse Resp BP Pulse Ox 36.6 C 116 H 14 123/80 H 94 12/27/16 12:37 12/27/16 12:37 12/27/16 06:42 12/27/16 12:37 12/27/16 12:37 Laboratory Results 12/22/16 07:10 - Physical Exam Constitutional: chronically ill appearing, uncomfortable, No no apparent distress (distressed and lying in bed), No not in pain (R abd pain) Cardiovascular: tachycardia, No systolic murmur, No irregularly irregular, No edema Respiratory: no respiratory distress, no rales or rhonchi, clear to auscultation Gastrointestinal: tenderness (RLQ), No normoactive bowel sounds (hypoactive bowel sounds), No guarding, No distension Genitourinary: no bladder fullness, no bladder tenderness, no renal bruits, No bustillo in urethra Neurologic: AAOx3, No asterixes (mild tremulousness) Psychiatric: not encephalopathic, thought process linear, anxious, flat affect, No agitated ICD10 Worksheet Patient Problems: Problems Problem Status Onset Acute psychosis Acute Polysubstance abuse Acute
[2016-12-27] MEDS ORDERED: BISACODYL 5 MG EC TAB PO ONE (19:32)
[2016-12-27] MEDS: TAMSULOSIN HCL 0.4 MG CAP PO SCH (19:55)
[2016-12-27 21:35] LABS: % IMMATURE GRANULYOCYTES 0.2 % (0.0-1.1); ABSOLUTE IMMATURE GRANULOCYTES 0.01 10^3/uL (0.00-0.10); ADD DIFF? NO; ADD MORPH? NO; ADD SCAN? NO; ATYPICAL LYMPHOCYTE FLAG 0 (0-99); FRAGMENT RBC FLAG 0 (0-99); HEMATOCRIT 43.2 % (38.0-47.0); HEMOGLOBIN 14.2 g/dL (12.6-16.3); LEFT SHIFT FLG 0 (0-99); LIPEMIA HEMOLYSIS FLAG 80 (0-99); MEAN CELL HEMOGLOBIN 30.3 pg (27.9-34.1); MEAN CELL HEMOGLOBIN CONCENTR. 32.9 g/dL (32.4-36.7); MEAN CELL VOLUME 92.3 fL (81.5-99.8); MEAN PLATELET VOLUME 10.5 fL (8.7-11.7); PLATELET CLUMPS FLAG 0 (0-99); PLATELET COUNT 247 10^3/uL (150-400); RED BLOOD CELL COUNT 4.68 10^6/uL (4.18-5.33); RED CELL DISTRIBUTION WIDTH 13.2 % (11.5-15.2)
[2016-12-27 22:39] LABS: ANION GAP 13 mEq/L (8-16); CALCIUM 9.7 mg/dL (8.5-10.4); CARBON DIOXIDE 26 mEq/l (22-31); CHLORIDE 100 mEq/L (97-110); CREATININE 1.2 mg/dL (0.6-1.0); GLOMERULAR FILTRATION RATE 51; GLUCOSE 83 mg/dL (70-100); POTASSIUM 3.6 mEq/L (3.5-5.2); SODIUM 139 mEq/L (134-144)
[2016-12-27] MEDS: ONDANSETRON DISINTEGRATING 4 MG TAB PO PRN (22:42)
[2016-12-28] MEDS: oxyCODONE IR 5 MG TAB PO PRN ×4 (00:02→20:20)
--- NOTE | 2016-12-28 03:36 | SOAPPROG ---
SOAP Progress Note Assessment/Plan: Assessment: 36yo DWF who lives with her parents, and is employed, with a long hx of depression, but also substance use, most recently abusing dextromethorphan, diphenhydramine and alcohol. She self -presented to ED reporting AH/VH and SI, was placed on an M1, and admitted to for stabilization. Since admission, on 12/19 late night she required S/R and Emeds for agitation and self-harming behavior of banging head. Then she was placed on LOS due to inability to contract for safety. Hilbert II features noted. Was started on Abilify 10mg hs and prozac was d/cd on admission due to concerns for possible underlying bipolar spectrum mood disorder. 12/26/16 15:11 Per staff, slept 5hr+8hr yesterday, Pt in bed sleeping most of day today and did not attend groups. Has only recently been off room-lock/behavior plan. Reporting depression, poor motivation, and occasional AH. wants to "not feel" any emotions. No plan/intent to harm self. Feels she has a "loose screw in my brain" and feels "on edge" when around peers on unit, especially one who is quite disruptive, so preferring to isolate completely. Bothered most by her "claustrophobia", +AH and feeling hopeless. MSE: cooperative, nml speech rate, low vol, mood depressed, affect restricted. expressing frustration with inconsistent rules/restrictions ie/around her use of make-up or having it in her room etc. +AH derogatory, did not appear responding to int stim presently, no active SI and no thoughts to harm others. i/j-limited/impaired PLAN: -d/c seroquel. has been using prns which add to sedation. also hx of subst abuse -zyprexa 10mg qhs -incr Abilify to 15mg qd. consider change to HS if sedating effects. -will need to reinstate room-lock program/behav plan 12/28/16 18:32 Up all night b/c slept all day yesterday. Went to sleep at 5am today, missed bkfast. Had sxs c/w kidney stone and known +Hx of such. Upon mtg this afternoon, pt asking for decr room restriction, would like to lay down w/kidney stone discomfort but promises to attend all groups. Still being reported as having poor po intake. Feels it would be reasonable to just avoid eating geno if med increases weight. Wonders why off Trazodone, but had previously reported it's ineffectiveness so it was d/cd. Denies other med s/e. MSE: cooperative, nml speech rate, low vol, mood "I don't feel good", affect restricted. no current +AH but still problematic at HS, no active SI and no thoughts to harm others, but told child care sitter yesterday not sure if would feel able to maintain safety if discharged. i/j-limited/impaired PLAN: -cont Abilify 15mg --will leave zyprexa 10mg hs for tonight, consider change tomorrow. hoped it would help with AH and improve appetite/hs sleep, but pt expressing increased weight concerns and may be at risk for further restricting her eating with this concern. - Hospitalist consult for kidney stone. see note for details. discussed recommendations. much appreciated. -on STC -on Librium 10mg TID. will taper to 5mg tid and cont follow VS QShift. -cont to monitor po intake and encourage hydration Objective: Vital Signs Temp Pulse Resp BP Pulse Ox 36.6 C 96 14 83/59 L 90 L 12/27/16 23:53 12/27/16 23:53 12/27/16 23:53 12/27/16 23:53 12/27/16 23:53 Laboratory Results 12/27/16 18:15 12/27/16 18:15 - Time Spent With Patient Time Spent With Patient: 35min - Pending Discharge Pending Discharge Within 24 Hours: No Pending Discharge Within 48 Hours: No ICD10 Worksheet Patient Problems: Problems Problem Status Onset Acute psychosis Acute Polysubstance abuse Acute
[2016-12-28] MEDS: ONDANSETRON DISINTEGRATING 4 MG TAB PO PRN ×3 (08:24→15:33)
[2016-12-28] MEDS: ARIPiprazole 10 MG TAB PO SCH (09:23)
[2016-12-28] MEDS: MULTIVITAMINS 1 EACH TAB PO SCH (09:24)
[2016-12-28] MEDS: PANTOPRAZOLE SODIUM 40 MG TAB PO SCH (09:24)
[2016-12-28] MEDS: SENNOSIDES/DOCUSATE SODIUM TAB PO SCH ×2 (09:24→20:21)
[2016-12-28] MEDS: NICOTINE 21 MG/24 HR PATCH TD SCH (09:25)
[2016-12-28] MEDS: CITALOPRAM 20 MG TAB PO SCH (12:23)
--- NOTE | 2016-12-28 12:54 | SOAPPROG ---
SOAP Progress Note Assessment/Plan: Assessment: * H/O nephrolithiasis with RLQ pain and R flank tenderness, UA with bloood, RBCs , WBCs, LE+ but no leukocytosis on CBC, Cr up form 0.8 to 1.2 in 5 days and eGFR no below 50 at 51. Discussed [facility] ab[facility] or US, r/o hydronephrosis, consider lithotripsy or other procedure per Urology. She prefers to wait to see if stone will pass. Continue oxycodone but will change form Q 6 hr to Q 4 hr PRN; continue ibuprofen, tamsulosin. Repeat BMP in AM. Monitor urine Cx: if grows pathogen will treat for UTI. D/W Dr. Cameron, Urology. Would not have increased creatinine unless B hydronephrosis and symptoms are only on R. OK to wait a few days. Given prolonged course of pain > 1 mo, may need procedure but nut urgent. Plan to follow-up after discharge from [facility]. 12/28/16 13:09 Subjective: Follow-up on abdominal pain, h/o nephrolithiasis. Continues to have pain and requests increase in oxycodone. Describes lower R abd pressure, thinks she's trying to pass a stone. Has been drinking more fluids. No dysuria, f/c. Objective: Vital Signs Temp Pulse Resp BP Pulse Ox 36.6 C 96 14 83/59 L 90 L 12/27/16 23:53 12/27/16 23:53 12/27/16 23:53 12/27/16 23:53 12/27/16 23:53 Laboratory Results 12/27/16 18:15 12/27/16 18:15 Physical Exam - Physical Exam General Appearance: WD/WN, alert, no apparent distress, obese Abdomen: soft, other (Tender rlq and R flank), No guarding, No rebound, No mass Extremities: other (1+ edema B LE) ICD10 Worksheet Patient Problems: Problems Problem Status Onset Acute psychosis Acute Polysubstance abuse Acute
--- NOTE | 2016-12-28 14:31 | SOAPPROG ---
SOAP Progress Note Assessment/Plan: Assessment: Plan: 12/22/16 15:19 Appears depressed. On Abilify. Denies SI and very shortly after cuts wrists. Very characterological. Utilizing help-seeking, help-rejecting behaviors. Very stuck. Will [facility], though will d/c CIWA tomorrow unless much more prominent withdrawal becomes apparent. Will call pt's father who has called numerous times to schedule an appointment with me to talk about pt. 12/23/16 11:45 Remains regressed, inactive. Continues to employ help-seeking, help-rejecting behaviors. Will [facility] for now, institute behavioral plan. 12/24/16 11:20 Behavioral plan effective in getting pt to interact. She seems genuine in her desire for change. The character of her reported AH's is convincing for MDD with psychosis. Will continue Abilify 10mg, monitor behaviors per plan. Will provide information on ECT, consider as a possible next step. 12/25/16 12:34 Improved today. Will d/c reverse room protocol to allow pt to voluntarily comply. This will limit further regression and infantilization. If she does not comply and continues to self-harm or isolate, will reinstate either reverse room or LOS as appropriate. 12/28/16 14:33 Remains depressed and suicidal. I reviewed again with her potential treatments for this and she agrees to restart an antidepressant in combination with the Abilify. She believes she has done best in the past on Celexa. Will start at 20mg. The risks, benefits and alternatives of this are reviewed with pt and she agrees to proceed. Subjective: Pt seen, discussed with staff. Reports feeling "numb, but still really depressed." Has numerous c/o's about the weekend, related mostly to programmatic issues. Returned to isolating in her room, so reverse room protocol was reinstituted. She is not happy about this. Remains interested in ECT. States repeatedly that she wants to leave the hospital, but states she "never go back to my parents' house." She states instead that she plans to "Just live on the streets and meet a group of people to hang out with and then maybe live with. I don't care what happens to me. Whatever happens, happens." She states also, "I just want to jump off a bridge or bash my head into a brick wall." Objective: Vital Signs Temp Pulse Resp BP Pulse Ox 36.6 C 96 14 83/59 L 90 L 12/27/16 23:53 12/27/16 23:53 12/27/16 23:53 12/27/16 23:53 12/27/16 23:53 Laboratory Results 12/27/16 18:15 12/27/16 18:15 MSE: Moderately anxious. Mild bilateral hand tremor. Reflexes are nl. Affect is constricted, dysphoric, stable. Mood is "depressed." TP linear. TC reveals no psychosis. SI persists. - Time Spent With Patient Time Spent With Patient: 25" - Pending Discharge Pending Discharge Within 24 Hours: No Pending Discharge Within 48 Hours: No ICD10 Worksheet Patient Problems: Problems Problem Status Onset Acute psychosis Acute Polysubstance abuse Acute
[2016-12-28] MEDS: OLANZapine 5 MG TAB PO PRN ×2 (15:32→20:26)
[2016-12-28] MEDS: TAMSULOSIN HCL 0.4 MG CAP PO SCH (20:22)
[2016-12-29] MEDS: oxyCODONE IR 5 MG TAB PO PRN ×5 (01:35→20:36)
[2016-12-29] MEDS: SENNOSIDES/DOCUSATE SODIUM TAB PO SCH ×2 (08:48→18:56)
[2016-12-29] MEDS: CITALOPRAM 20 MG TAB PO SCH (08:49)
[2016-12-29] MEDS: ARIPiprazole 10 MG TAB PO SCH (08:49)
[2016-12-29] MEDS: PANTOPRAZOLE SODIUM 40 MG TAB PO SCH (08:49)
[2016-12-29] MEDS: MULTIVITAMINS 1 EACH TAB PO SCH (08:49)
[2016-12-29] MEDS: OLANZapine 5 MG TAB PO PRN ×2 (08:57→13:57)
[2016-12-29] MEDS: NICOTINE 21 MG/24 HR PATCH TD SCH (09:23)
[2016-12-29] MEDS: IBUPROFEN 600 MG TAB PO PRN ×2 (11:09→18:49)
[2016-12-29 12:41] LABS: ANION GAP 9 mEq/L (8-16); CARBON DIOXIDE 25 mEq/l (22-31); CHLORIDE 103 mEq/L (97-110); GLOMERULAR FILTRATION RATE > 60; GLUCOSE 103 mg/dL (70-100); POTASSIUM 3.9 mEq/L (3.5-5.2); SODIUM 137 mEq/L (134-144)
[2016-12-29] MEDS: ONDANSETRON DISINTEGRATING 4 MG TAB PO PRN ×3 (13:57→23:36)
--- NOTE | 2016-12-29 15:42 | SOAPPROG ---
SOAP Progress Note Assessment/Plan: Assessment: Plan: 12/22/16 15:19 Appears depressed. On Abilify. Denies SI and very shortly after cuts wrists. Very characterological. Utilizing help-seeking, help-rejecting behaviors. Very stuck. Will CCM, though will d/c CIWA tomorrow unless much more prominent withdrawal becomes apparent. Will call pt's father who has called numerous times to schedule an appointment with me to talk about pt. 12/23/16 11:45 Remains regressed, inactive. Continues to employ help-seeking, help-rejecting behaviors. Will [facility] for now, institute behavioral plan. 12/24/16 11:20 Behavioral plan effective in getting pt to interact. She seems genuine in her desire for change. The character of her reported AH's is convincing for MDD with psychosis. Will continue Abilify 10mg, monitor behaviors per plan. Will provide information on ECT, consider as a possible next step. 12/25/16 12:34 Improved today. Will d/c reverse room protocol to allow pt to voluntarily comply. This will limit further regression and infantilization. If she does not comply and continues to self-harm or isolate, will reinstate either reverse room or LOS as appropriate. 12/28/16 14:33 Remains depressed and suicidal. I reviewed again with her potential treatments for this and she agrees to restart an antidepressant in combination with the Abilify. She believes she has done best in the past on Celexa. Will start at 20mg. The risks, benefits and alternatives of this are reviewed with pt and she agrees to proceed. 12/29/16 15:41 More engaged, though still severely depressed with active SI. I reviewed again with her the course of ECT as well as the risks, benefits and alternatives. She states she is "very interested" in starting ECT believing " it is my only hope." Dr. Rao has agreed to provide a second opinion as pt has no outpatient psychiatrist at this time. Subjective: Pt seen, discussed with staff. Reports feeling "terrible" today due to ongoing flank pain. She states this has negatively impacted her mood and she notes a corresponding increase in the AH's. She states she has begun responding to them "involuntarily." SI persists and she states, "I just want to give up and jump out a window." Objective: Vital Signs Temp Pulse Resp BP Pulse Ox 36.8 C 127 H 14 105/67 96 12/29/16 08:19 12/29/16 08:19 12/29/16 08:19 12/29/16 08:19 12/29/16 08:19 Laboratory Results 12/27/16 18:15 12/29/16 07:00 MSE: Engaging, coop. Affect is blunted, dysphoric, stable. Mood is "terrible , depressed." TP linear. TC reveals continued AH"s. SI persists. - Time Spent With Patient Time Spent With Patient: 25" - Pending Discharge Pending Discharge Within 24 Hours: No Pending Discharge Within 48 Hours: No ICD10 Worksheet Patient Problems: Problems Problem Status Onset Acute psychosis Acute Polysubstance abuse Acute
[2016-12-29] MEDS: TAMSULOSIN HCL 0.4 MG CAP PO SCH (19:13)
[2016-12-30] MEDS: oxyCODONE IR 5 MG TAB PO PRN ×4 (04:26→20:15)
[2016-12-30] MEDS: ARIPiprazole 10 MG TAB PO SCH (09:28)
[2016-12-30] MEDS: PANTOPRAZOLE SODIUM 40 MG TAB PO SCH (09:28)
[2016-12-30] MEDS: MULTIVITAMINS 1 EACH TAB PO SCH (09:28)
[2016-12-30] MEDS: NICOTINE 21 MG/24 HR PATCH TD SCH (09:29)
[2016-12-30] MEDS: SENNOSIDES/DOCUSATE SODIUM TAB PO SCH ×2 (09:29→20:15)
[2016-12-30] MEDS: CITALOPRAM 20 MG TAB PO SCH (09:30)
[2016-12-30] MEDS: OLANZapine 5 MG TAB PO PRN ×2 (09:36→16:12)
[2016-12-30] MEDS: IBUPROFEN 600 MG TAB PO PRN ×2 (11:01→20:15)
--- NOTE | 2016-12-30 12:44 | SOAPPROG ---
SOAP Progress Note Assessment/Plan: Assessment: Plan: 12/22/16 15:19 Appears depressed. On Abilify. Denies SI and very shortly after cuts wrists. Very characterological. Utilizing help-seeking, help-rejecting behaviors. Very stuck. Will CCM, though will d/c CIWA tomorrow unless much more prominent withdrawal becomes apparent. Will call pt's father who has called numerous times to schedule an appointment with me to talk about pt. 12/23/16 11:45 Remains regressed, inactive. Continues to employ help-seeking, help-rejecting behaviors. Will CCM for now, institute behavioral plan. 12/24/16 11:20 Behavioral plan effective in getting pt to interact. She seems genuine in her desire for change. The character of her reported AH's is convincing for MDD with psychosis. Will continue Abilify 10mg, monitor behaviors per plan. Will provide information on ECT, consider as a possible next step. 12/25/16 12:34 Improved today. Will d/c reverse room protocol to allow pt to voluntarily comply. This will limit further regression and infantilization. If she does not comply and continues to self-harm or isolate, will reinstate either reverse room or LOS as appropriate. 12/28/16 14:33 Remains depressed and suicidal. I reviewed again with her potential treatments for this and she agrees to restart an antidepressant in combination with the Abilify. She believes she has done best in the past on Celexa. Will start at 20mg. The risks, benefits and alternatives of this are reviewed with pt and she agrees to proceed. 12/29/16 15:41 More engaged, though still severely depressed with active SI. I reviewed again with her the course of ECT as well as the risks, benefits and alternatives. She states she is "very interested" in starting ECT believing " it is my only hope." Dr. Rao has agreed to provide a second opinion as pt has no outpatient psychiatrist at this time. 12/30/16 12:44 Brighter by all accounts. Pain is definitely a distraction to therapeutic process. Will refer to the ED for further evaluation and pain control. Will o/ w CCM. Subjective: Pt seen, discussed with staff. Seen earlier by Dr. Rao for ECT evaluation. She was calm and conversant at that time. Later in the morning, she c/o increased intensity of pain and was sent to ED for evaluation. Objective: Vital Signs Temp Pulse Resp BP Pulse Ox 36.6 C 137 H 12 96/66 L 88 L 12/30/16 12:07 12/30/16 12:07 12/30/16 12:07 12/30/16 12:07 12/30/16 12:07 Laboratory Results 12/27/16 18:15 12/29/16 07:00 MSE: Anxious, in distress. Affect is constricted, dysphoric. Mood is "terrible." TP linear. TC reveals ongoing AH's. SI persists. - Time Spent With Patient Time Spent With Patient: 15" ICD10 Worksheet Patient Problems: Problems Problem Status Onset Acute psychosis Acute Polysubstance abuse Acute
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
[2016-12-30] MEDS: BISACODYL 5 MG EC TAB PO PRN (16:24)
[2016-12-30] MEDS: TAMSULOSIN HCL 0.4 MG CAP PO SCH (20:15)
[2016-12-31] MEDS: oxyCODONE IR 5 MG TAB PO PRN ×5 (03:32→19:57)
[2016-12-31] MEDS: IBUPROFEN 600 MG TAB PO PRN (03:50)
[2016-12-31] MEDS: ARIPiprazole 10 MG TAB PO SCH (07:47)
[2016-12-31] MEDS: CITALOPRAM 20 MG TAB PO SCH (07:48)
[2016-12-31] MEDS: SENNOSIDES/DOCUSATE SODIUM TAB PO SCH ×2 (07:48→19:57)
[2016-12-31] MEDS: PANTOPRAZOLE SODIUM 40 MG TAB PO SCH (07:48)
[2016-12-31] MEDS: MULTIVITAMINS 1 EACH TAB PO SCH (07:50)
[2016-12-31] MEDS: NICOTINE 21 MG/24 HR PATCH TD SCH (07:50)
[2016-12-31] MEDS: BISACODYL 5 MG EC TAB PO PRN (07:59)
[2016-12-31] MEDS: OLANZapine 5 MG TAB PO PRN ×2 (07:59→11:58)
[2016-12-31] MEDS: ONDANSETRON DISINTEGRATING 4 MG TAB PO PRN ×3 (11:22→21:29)
--- NOTE | 2016-12-31 12:45 | SOAPPROG ---
SOGIUSEPPE Progress Note Assessment/Plan: Assessment: Met again with pt to discuss further the role that ECT may play in her treatment. I provided psychoeducation around the effects, mental and physical, of her substance use and how the clearance of those effects from her system MAY include brightening of mood. Rehab option discussed. Pt had already thought about that option. It may make sense to use ECT PRIOR to rehab if, in the next week or so, there is no abatement of her mood symptoms or SI. However, I agree with Dr Sheets that her present focus on flank pain and nausea from her kidney stones is interfering in the very process of assessing changes in her psychiatric status. Hopefully,this can be addressed procedurally rather than waiting for the "stone to pass" while she continues to require [id number] opiates (with all the potential adverse consequences to a dual dx pt to doing so). She may be setting up her own block to obtaining this medical intervention here , as she believes the doctors here are "out of network". Perhaps CC can ascertain whether that is true. Furthermore, she needed further understanding of the intense committment that a course of ECT involves. She feels compelled to "get back to her job as soon as possible" and needed to understand that the ECT process itself could subvert that goal for up to 2 months. Plan: 12/31/16 12:37 Objective: Vital Signs Temp Pulse Resp BP Pulse Ox 36.5 C 104 H 15 113/66 97 12/31/16 00:30 12/31/16 00:30 12/31/16 00:30 12/31/16 00:30 12/31/16 00:30 Laboratory Results 12/27/16 18:15 12/29/16 07:00 ICD10 Worksheet Patient Problems: Problems Problem Status Onset Acute psychosis Acute Polysubstance abuse Acute
--- NOTE | 2016-12-31 14:41 | SOAPPROG ---
SOAP Progress Note Assessment/Plan: Assessment: Plan: 12/22/16 15:19 Appears depressed. On Abilify. Denies SI and very shortly after cuts wrists. Very characterological. Utilizing help-seeking, help-rejecting behaviors. Very stuck. Will CCM, though will d/c CIWA tomorrow unless much more prominent withdrawal becomes apparent. Will call pt's father who has called numerous times to schedule an appointment with me to talk about pt. 12/23/16 11:45 Remains regressed, inactive. Continues to employ help-seeking, help-rejecting behaviors. Will CCM for now, institute behavioral plan. 12/24/16 11:20 Behavioral plan effective in getting pt to interact. She seems genuine in her desire for change. The character of her reported AH's is convincing for MDD with psychosis. Will continue Abilify 10mg, monitor behaviors per plan. Will provide information on ECT, consider as a possible next step. 12/25/16 12:34 Improved today. Will d/c reverse room protocol to allow pt to voluntarily comply. This will limit further regression and infantilization. If she does not comply and continues to self-harm or isolate, will reinstate either reverse room or LOS as appropriate. 12/28/16 14:33 Remains depressed and suicidal. I reviewed again with her potential treatments for this and she agrees to restart an antidepressant in combination with the Abilify. She believes she has done best in the past on Celexa. Will start at 20mg. The risks, benefits and alternatives of this are reviewed with pt and she agrees to proceed. 12/29/16 15:41 More engaged, though still severely depressed with active SI. I reviewed again with her the course of ECT as well as the risks, benefits and alternatives. She states she is "very interested" in starting ECT believing " it is my only hope." Dr. Rao has agreed to provide a second opinion as pt has no outpatient psychiatrist at this time. 12/30/16 12:44 Brighter by all accounts. Pain is definitely a distraction to therapeutic process. Will refer to the ED for further evaluation and pain control. Will o/ w CCM. 12/31/16 14:42 Mood appears to be improving. Appreciate input from Dr. Rao. I am in agreement on all points with additional concern for her Cluster B personality issues. She also seems to be seeking opioids and we clearly don't need to get caught up in that. Will limit opioids and provide Toradol IM in the short term. Pt and CC continue to look in to residential programs which I am supportive of. Subjective: Pt seen, discussed with staff. Reports continued flank pain. Requesting max oxycodone doses. W/u in ED was negative though they did send a urine C&S. She benefitted from IV Toradol there. She reports resolution of SI stating, "I swear on my cat's life that I would never try to kill myself." Objective: Vital Signs Temp Pulse Resp BP Pulse Ox 36.4 C 130 H 20 100/60 98 12/31/16 08:00 12/31/16 08:00 12/31/16 08:00 12/31/16 08:00 12/31/16 08:00 Laboratory Results 12/27/16 18:15 12/29/16 07:00 MSE: Calm, coop. Affect is brighter, stable, approp. Does not appear to be in any extremus. Mood is "better." TP linear. TC reveals no psychosis. Denies active SI. - Time Spent With Patient Time Spent With Patient: 25" ICD10 Worksheet Patient Problems: Problems Problem Status Onset Acute psychosis Acute Polysubstance abuse Acute
[2016-12-31] MEDS: KETOROLAC 15 MG/1 ML SDV IM SCH ×2 (15:41→19:47)
[2016-12-31] MEDS: MAGNESIUM HYDROXIDE 30 ML UDCUP PO PRN (16:36)
[2016-12-31] MEDS: MAG HYDROX/AL HYDROX/SIMETH 30 ML UDCUP PO PRN (17:34)
[2016-12-31] MEDS ORDERED: KETOROLAC 15 MG/1 ML SDV IM SCH (18:00)
[2016-12-31 18:27] LABS: COLOR YELLOW; LEUKOCYTE ESTERASE,URINE TRACE (NEGATIVE); NITRITE,URINE NEGATIVE (NEGATIVE)
[2016-12-31 18:35] LABS: BACTERIA 2+ /hpf (NONE SEEN); MUCUS 1+ /lpf (NONE-1+); RBC,URINE 50-182 /hpf (0-3); WBC,URINE 25-50 /hpf (0-3)
[2016-12-31] MEDS: TAMSULOSIN HCL 0.4 MG CAP PO SCH (19:57)
[2016-12-31] MEDS: BISACODYL 10 MG SUPP PR PRN (20:34)
[2017-01-01] MEDS: LACTULOSE 20 GM/30 ML UDCUP PO PRN (02:13)
[2017-01-01] MEDS: oxyCODONE IR 5 MG TAB PO PRN ×5 (02:14→20:21)
[2017-01-01] MEDS: OLANZapine 5 MG TAB PO PRN ×2 (02:21→08:34)
[2017-01-01] MEDS: KETOROLAC 15 MG/1 ML SDV IM SCH ×4 (02:23→17:49)
[2017-01-01] MEDS: ONDANSETRON DISINTEGRATING 4 MG TAB PO PRN (07:33)
[2017-01-01] MEDS: ARIPiprazole 10 MG TAB PO SCH (08:33)
[2017-01-01] MEDS: MULTIVITAMINS 1 EACH TAB PO SCH (08:34)
[2017-01-01] MEDS: NICOTINE 21 MG/24 HR PATCH TD SCH (08:35)
[2017-01-01] MEDS: CITALOPRAM 20 MG TAB PO SCH (08:36)
[2017-01-01] MEDS: PANTOPRAZOLE SODIUM 40 MG TAB PO SCH (08:37)
[2017-01-01] MEDS: SENNOSIDES/DOCUSATE SODIUM TAB PO SCH ×2 (10:49→20:21)
[2017-01-01] MEDS ORDERED: LORazepam 1 MG TAB PO ONE (14:23)
[2017-01-01] MEDS: TAMSULOSIN HCL 0.4 MG CAP PO SCH (20:21)
[2017-01-02] MEDS: KETOROLAC 15 MG/1 ML SDV IM SCH ×5 (01:13→23:51)
[2017-01-02] MEDS: ARIPiprazole 10 MG TAB PO SCH (08:36)
[2017-01-02] MEDS: SENNOSIDES/DOCUSATE SODIUM TAB PO SCH ×2 (08:37→20:23)
[2017-01-02] MEDS: CITALOPRAM 20 MG TAB PO SCH (08:38)
[2017-01-02] MEDS: MULTIVITAMINS 1 EACH TAB PO SCH (08:39)
--- NOTE | 2017-01-02 08:39 | HOSPPROG ---
Hospitalist Progress Note Assessment/Plan: 36 yo F w nephrolithiasis, depression nephrolithiasis: long standing history w outpatient urologist this explains hematuria i doubt she is obstructed but will check chem 7 for completeness pain: she is asking for more pain meds she appears comfortable not hypertensive tachycardic, not hypertensive would continue current med regimen renal: did have increased cr earlier in stay repeat today would limit toradol use to 3 days menstrual cramps: asking for flexeril this is a reasonable, albeit strong medication for menstrual cramps and can cause disinhibition that may cloud psychiatric progress ?>UTI: urine culture not c/w uti no abx hospital medicine will follow up on chem 7 but not see 01/03 unless cr elevated Subjective: states pain the same. c/o menstrual cramps- severe. intermittent gross hematuria Objective: Vital Signs Temp Pulse Resp BP Pulse Ox 36.5 C 113 H 14 115/58 L 90 L 01/02/17 00:30 01/02/17 00:30 01/02/17 00:30 01/02/17 00:30 01/02/17 00:30 Laboratory Results 12/27/16 18:15 12/29/16 07:00 - Physical Exam Constitutional: no apparent distress, appears nourished Eyes: PERRL, anicteric sclera Ears, Nose, Mouth, Throat: moist mucous membranes, hearing normal Cardiovascular: regular rate and rhythym, no murmur, rub, or gallop, No tachycardia Respiratory: no respiratory distress, no rales or rhonchi Gastrointestinal: normoactive bowel sounds, soft, non-tender abdomen Genitourinary: No bustillo in urethra Skin: warm, normal color Musculoskeletal: full muscle strength, no muscle tenderness Neurologic: AAOx3, sensation intact bilaterally Psychiatric: interacting appropriately, not anxious ICD10 Worksheet Patient Problems: Problems Problem Status Onset Acute psychosis Acute Polysubstance abuse Acute
[2017-01-02] MEDS: PANTOPRAZOLE SODIUM 40 MG TAB PO SCH (08:40)
[2017-01-02] MEDS: NICOTINE 21 MG/24 HR PATCH TD SCH (08:40)
[2017-01-02] MEDS: oxyCODONE IR 5 MG TAB PO PRN ×3 (09:19→20:30)
[2017-01-02] MEDS: OLANZapine 5 MG TAB PO PRN ×2 (09:20→15:31)
--- NOTE | 2017-01-02 12:54 | SOAPPROG ---
SOAP Progress Note Assessment/Plan: Assessment: Patient with unspecified schizophrenia spectrum and other psychotic disorder along with other hallucinogen Use Disorder, severe, in forced remission a controlled environment, alcohol use disorder, severe, in forced remission in a controlled environment, and a rule out of borderline personality disorder reporting no SI for several days. She is interested in substance abuse treatment; however, she is not ready to give up opiates. She actually asked for them for cramps. She is fearful of standing up to her parents about substance abuse treatment. She reports a history of them sabotaging her going to treatment in the past, and she fears that is going to happen again given her father does not like where she might go. She showed this sign writer hand internet print outs of unverified complaints from alleged former patients of the facility. She reportedly is in the process of passing a kidney stone'; although, she does not appear in acute pain at this time. Plan: Will continue current medications. She will need to be off any medications of abuse prior to going to substance abuse treatment, so she needs to deal with her kidney stones prior to going to treatment. Educated on some basic DBT skills and the associated between mental and physical pain. Recommend an inpatient dual diagnosis program to help her with her substance abuse problems and to better clarify her psychiatric issues. This appears to be a bipolar type mood disorder; therefore, will focus on mood stabilizers and stop the antidepressant. Consideration might be made to restricting parental visits given patient's current mental status. The visits might be interfering with her treatment. Might consider talking with the parents to see if the issue to can be resolved. 12/20/16 17:47 12/20/16 18:07 01/02/17 12:44 01/02/17 12:54 01/02/17 12:58 01/02/17 13:04 01/02/17 13:08 01/02/17 13:09 Subjective: She reports she is not doing good because her parents are coming to visit. She thought she found a good program, but her father found some bad information about it. She reports this has happened in the past, and she went home never to end up in treatment. She would like a prn of Zyprexa to deal with her anxiety and "freaking out" associated with having to talk with her parents. She also complains of cramps, and she wonders if her opiates can be increased to deal with this. Objective: Vital Signs Temp Pulse Resp BP Pulse Ox 36.5 C 113 H 14 115/58 L 90 L 01/02/17 00:30 01/02/17 00:30 01/02/17 00:30 01/02/17 00:30 01/02/17 00:30 Laboratory Results 12/27/16 18:15 12/29/16 07:00 Obese, female neatly dressed and groomed. Sitting in a chair rocking side to side ever so slightly. Antsy. Speech- Fearful tone of voice. Mood- " Very scared to see my parents." Affect- Anxious, fearful. Thought Process- linear and goal directed. Thought Content - No SI/HI/ NO AH/VH. - Time Spent With Patient Time Spent With Patient: 40 - Pending Discharge Pending Discharge Within 24 Hours: No Pending Discharge Within 48 Hours: No ICD10 Worksheet Patient Problems: Problems Problem Status Onset Acute psychosis Acute Polysubstance abuse Acute
[2017-01-02] MEDS: LACTULOSE 20 GM/30 ML UDCUP PO PRN (18:08)
[2017-01-02] MEDS: TAMSULOSIN HCL 0.4 MG CAP PO SCH (20:24)
[2017-01-02] MEDS ORDERED: OLANZapine 5 MG TAB PO SCH (21:00)
[2017-01-02] MEDS: MAG HYDROX/AL HYDROX/SIMETH 30 ML UDCUP PO PRN (23:54)
[2017-01-03] MEDS: oxyCODONE IR 5 MG TAB PO PRN ×4 (00:19→19:40)
[2017-01-03] MEDS: OLANZapine 5 MG TAB PO PRN ×3 (00:20→19:40)
[2017-01-03] MEDS: ONDANSETRON DISINTEGRATING 4 MG TAB PO PRN (00:21)
[2017-01-03] MEDS: KETOROLAC 15 MG/1 ML SDV IM SCH ×3 (06:45→17:54)
[2017-01-03] MEDS: ARIPiprazole 10 MG TAB PO SCH (08:13)
[2017-01-03] MEDS: CITALOPRAM 20 MG TAB PO SCH (08:14)
[2017-01-03] MEDS: MULTIVITAMINS 1 EACH TAB PO SCH (08:14)
[2017-01-03] MEDS: NICOTINE 21 MG/24 HR PATCH TD SCH (08:14)
[2017-01-03] MEDS: SENNOSIDES/DOCUSATE SODIUM TAB PO SCH ×2 (08:17→19:39)
[2017-01-03] MEDS: PANTOPRAZOLE SODIUM 40 MG TAB PO SCH (08:18)
--- NOTE | 2017-01-03 10:03 | SOAPPROG ---
SOAP Progress Note Assessment/Plan: Assessment: Plan: 12/22/16 15:19 Appears depressed. On Abilify. Denies SI and very shortly after cuts wrists. Very characterological. Utilizing help-seeking, help-rejecting behaviors. Very stuck. Will CCM, though will d/c CIWA tomorrow unless much more prominent withdrawal becomes apparent. Will call pt's father who has called numerous times to schedule an appointment with me to talk about pt. 12/23/16 11:45 Remains regressed, inactive. Continues to employ help-seeking, help-rejecting behaviors. Will CCM for now, institute behavioral plan. 12/24/16 11:20 Behavioral plan effective in getting pt to interact. She seems genuine in her desire for change. The character of her reported AH's is convincing for MDD with psychosis. Will continue Abilify 10mg, monitor behaviors per plan. Will provide information on ECT, consider as a possible next step. 12/25/16 12:34 Improved today. Will d/c reverse room protocol to allow pt to voluntarily comply. This will limit further regression and infantilization. If she does not comply and continues to self-harm or isolate, will reinstate either reverse room or LOS as appropriate. 12/28/16 14:33 Remains depressed and suicidal. I reviewed again with her potential treatments for this and she agrees to restart an antidepressant in combination with the Abilify. She believes she has done best in the past on Celexa. Will start at 20mg. The risks, benefits and alternatives of this are reviewed with pt and she agrees to proceed. 12/29/16 15:41 More engaged, though still severely depressed with active SI. I reviewed again with her the course of ECT as well as the risks, benefits and alternatives. She states she is "very interested" in starting ECT believing " it is my only hope." Dr. Rao has agreed to provide a second opinion as pt has no outpatient psychiatrist at this time. 12/30/16 12:44 Brighter by all accounts. Pain is definitely a distraction to therapeutic process. Will refer to the ED for further evaluation and pain control. Will o/ w CCM. 12/31/16 14:42 Mood appears to be improving. Appreciate input from Dr. Rao. I am in agreement on all points with additional concern for her Cluster B personality issues. She also seems to be seeking opioids and we clearly don't need to get caught up in that. Will limit opioids and provide Toradol IM in the short term. Pt and CC continue to look in to residential programs which I am supportive of. 01/03/17 10:07 Continued subjective improvement although she remains quite depressed. Meds are in place and need more time to work. Family enmeshment is fueling expression of borderline traits. Will continue to attempt to set limits with pt and family, taper pain meds, d/c benzo's. D/c plan remains to go to [facility] in [place], hopefully by the first of the week. Subjective: LATE ENTRY FOR 01/01/17. Pt seen, discussed with staff. Interactive with me though continues to split CC and family. CC spent a long time with pt and family yesterday and reiterated our plan for d/c. Father was reportedly in agreement at the time, but later sabotaged this telling pt that he didn't want her to go to the [facility] as it was "too far away." Pt then announced that she was going to be "discharged to the street." Her father responded with a tirade directed at the CC to the patient advocate. All the while, the plan that was discussed in detail and agreed upon by all the day before had not changed. This is demonstrative of the ongoing enmeshment within this family system that is at the core of pt's current conflicts, both internal and external. She continues to report a high level of pain c/o's and seek additional pain and anxiety medications. Objective: Vital Signs Temp Pulse Resp BP Pulse Ox 36.2 C 80 16 128/62 H 95 01/03/17 09:46 01/03/17 09:46 01/03/17 09:46 01/03/17 09:46 01/03/17 09:46 Microbiology 12/31/16 18:32 Urine Culture - Final Urine,Clean Catch Five Or More [place] Types Laboratory Results 12/27/16 18:15 12/29/16 07:00 MSE: Marginally groomed, pleasant and coop. Affect is blunted, dysphoric, stable. Mood is "afraid." TP linear. TC reveals ongoing low-tone AH's. SI persists with statements like, "I just want to give up." - Time Spent With Patient Time Spent With Patient: 25" - Pending Discharge Pending Discharge Within 24 Hours: No Pending Discharge Within 48 Hours: No ICD10 Worksheet Patient Problems: Problems Problem Status Onset Acute psychosis Acute Polysubstance abuse Acute
[2017-01-03 11:13] LABS: ANION GAP 6 mEq/L (8-16); CALCIUM 8.5 mg/dL (8.5-10.4); CARBON DIOXIDE 28 mEq/l (22-31); CHLORIDE 102 mEq/L (97-110); GLOMERULAR FILTRATION RATE > 60; GLUCOSE 96 mg/dL (70-100); POTASSIUM 4.6 mEq/L (3.5-5.2); SODIUM 136 mEq/L (134-144)
[2017-01-03] MEDS: MAG HYDROX/AL HYDROX/SIMETH 30 ML UDCUP PO PRN ×2 (12:31→20:41)
--- NOTE | 2017-01-03 15:50 | SOAPPROG ---
SOAP Progress Note Assessment/Plan: Assessment: Patient with unspecified schizophrenia spectrum and other psychotic disorder along with other hallucinogen Use Disorder, severe, in forced remission a controlled environment, alcohol use disorder, severe, in forced remission in a controlled environment, and a rule out of borderline personality disorder reporting SI today, and she actually was not honest with this specifications writer about SI yesterday. She is interested in substance abuse treatment; however, she is not ready to give up opiates. This may have changed in the alst 24 hours. She is fearful of standing up to her parents about substance abuse treatment. She reports a history of them sabotaging her going to treatment in the past, and she fears that is going to happen again given her father does not like where she might go. She showed this specifications writer internet print outs of unverified complaints from alleged former patients of the facility. SHe has fears of abandoning her parents, who she feels depend on her. She reportedly is in the process of passing a kidney stone'; although, she does not appear in acute pain at this time. She actually did not complain of pain today. Plan: Will continue current medications. She will need to be off any medications of abuse prior to going to substance abuse treatment, so she needs to deal with her kidney stones prior to going to treatment. Educated on some basic DBT skills and the associated between mental and physical pain. Recommend an inpatient dual diagnosis program to help her with her substance abuse problems and to better clarify her psychiatric issues. This appears to be a bipolar type mood disorder; therefore, will focus on mood stabilizers and stop the antidepressant. Consideration might be made to restricting parental visits given patient's current mental status. The visits might be interfering with her treatment. Might consider talking with the parents to see if the issue can be resolved. Consider family therapy. Conrad restriction. SI precautions. 12/20/16 17:47 12/20/16 18:07 01/02/17 12:44 01/02/17 12:54 01/02/17 12:58 01/02/17 13:04 01/02/17 13:08 01/02/17 13:09 01/03/17 15:37 01/03/17 15:50 01/03/17 15:53 01/03/17 15:54 Subjective: "I'm okay. I did something stupid last night, but I made the right choice of giving it to someone." She reports she broke the top off of an empty concealer and began to cut herself. She was able to give it to staff after thinking about what she was doing. "Sometimes I can't stand myself. I'm so disgusting about being me. I wish I was assertive, independent, prettier, smarter, or everything I'm not....I own nothing I have nothing; I'm just here." "I'm scared of dying, but the longer it goes on the more serious I think about it. [employer] I think it is the only way out. I see myself jumping in front of a the bus." Depression 7-05/20. She believes her mother is angry at her after she asked her parents to leave yesterday. Her mother did not come to visit her today. She doesn't know why she has allowed the situation to get to this point. She has allowed her parents to control everything. SHe feels ashamed. Her parents encourage her to make friends , but she doesn't know who would want to be friends with such a loser. She doesn 't want to go back home, and she hopes to talk with her parents and Eric about other options; however, her mother relies on her, and she is her father's ham. She helps her mother who has MS. The last two vacation her mother did go , but she accompanied her father. She reports she slept better last night with the medication for sleep. Objective: Vital Signs Temp Pulse Resp BP Pulse Ox 36.2 C 80 16 128/62 H 95 01/03/17 09:46 01/03/17 09:46 01/03/17 09:46 01/03/17 09:46 01/03/17 09:46 Microbiology 12/31/16 18:32 Urine Culture - Final Urine,Clean Catch Five Or More [place] Types Laboratory Results 12/27/16 18:15 01/03/17 06:30 female, calm, good eye contact. Quiet tone of voice. Pleading look in her eyes. Mood- "Depressed." thought Process- linear and goal directed. Thought Content - + SI/-HI.No AH/VH. Insight - Fair. Judgment - Fair. - Time Spent With Patient Time Spent With Patient: 30 - Pending Discharge Pending Discharge Within 24 Hours: No Pending Discharge Within 48 Hours: No ICD10 Worksheet Patient Problems: Problems Problem Status Onset Acute psychosis Acute Polysubstance abuse Acute
[2017-01-03] MEDS: TAMSULOSIN HCL 0.4 MG CAP PO SCH (19:40)
[2017-01-04] MEDS: KETOROLAC 15 MG/1 ML SDV IM SCH ×3 (01:23→15:00)
[2017-01-04] MEDS: OLANZapine 5 MG TAB PO PRN ×4 (02:08→23:39)
[2017-01-04] MEDS: oxyCODONE IR 5 MG TAB PO PRN ×3 (02:19→15:57)
[2017-01-04] MEDS: BISACODYL 10 MG SUPP PR PRN (04:56)
[2017-01-04] MEDS: ONDANSETRON DISINTEGRATING 4 MG TAB PO PRN (05:11)
[2017-01-04] MEDS: ARIPiprazole 10 MG TAB PO SCH (08:15)
[2017-01-04] MEDS: SENNOSIDES/DOCUSATE SODIUM TAB PO SCH ×2 (08:16→19:36)
[2017-01-04] MEDS: MULTIVITAMINS 1 EACH TAB PO SCH (08:16)
[2017-01-04] MEDS: CITALOPRAM 20 MG TAB PO SCH (08:17)
[2017-01-04] MEDS: PANTOPRAZOLE SODIUM 40 MG TAB PO SCH (08:17)
[2017-01-04] MEDS: NICOTINE 21 MG/24 HR PATCH TD SCH (08:17)
--- NOTE | 2017-01-04 16:27 | SOAPPROG ---
SOAP Progress Note Assessment/Plan: Assessment: Patient with unspecified schizophrenia spectrum and other psychotic disorder along with other hallucinogen Use Disorder, severe, in forced remission a controlled environment, alcohol use disorder, severe, in forced remission in a controlled environment, and a rule out of borderline personality disorder reporting no SI today. She is anxious about talking to her parents about substance abuse treatment She seems ambivalent about leaving her parents and getting substance abuse treatment. She is fearful of standing up to her parents about substance abuse treatment. She reports a history of them sabotaging her going to treatment in the past, and she fears that is going to happen again given her father does not like where she might go. She showed this comic writer internet print outs of unverified complaints from alleged former patients of the facility. She has fears of abandoning her parents, who she feels depend on her. She reportedly is in the process of passing a kidney stone' ; although, she does not appear in acute pain at this time. She actually did not complain of pain today. She is already on Protonix, but she can return to her previous medications for GERD at discharge. Plan: Will continue current medications. She will need to be off any medications of abuse prior to going to substance abuse treatment, so she needs to deal with her kidney stones prior to going to treatment. Educated on some basic DBT skills and the associated between mental and physical pain. Recommend an inpatient dual diagnosis program to help her with her substance abuse problems and to better clarify her psychiatric issues. Will start Lamictal for mood. Went over the risks and benefits. Will stop Toradol and Oxycodone. She is asking for Tylenol for pain; therefore, will start Tylenol. Will start Clonidine for anxiety and elevated blood pressure. Will stop Librium given reduced withdrawal symptoms and self tapering nature of Librium. This appears to be a bipolar type mood disorder; therefore, will focus on mood stabilizers and stopping the antidepressant. Consideration might be made to restricting parental visits given patient's current mental status. The visits might be interfering with her treatment. Might consider talking with the parents to see if the issue can be resolved. Consider family therapy. Conrad restriction. SI precautions. Likely discharge this week. 12/20/16 17:47 12/20/16 18:07 01/02/17 12:44 01/02/17 12:54 01/02/17 12:58 01/02/17 13:04 01/02/17 13:08 01/02/17 13:09 01/03/17 15:37 01/03/17 15:50 01/03/17 15:53 01/03/17 15:54 01/04/17 16:24 01/04/17 16:36 01/04/17 16:40 01/04/17 17:14 01/04/17 17:19 Subjective: She reports she has a urology appointment on , so she would like to stop the opiates and get Ibuprofen for menstrual cramps. She wants to be placed back on her medications for GERD. She worries about voices saying they are going to kill her. She denies current SI. She would like to go on a supervised walk because she finds it helpful. She would like to go home and spend time with her dog and cat. She reports she will do some research to see what other facilities exist for treatment. She would like someone to meet with her parents and her about possible inpatient treatment programs and family counseling, but she later reports she can't call her father to set-up the meeting because he went to [place] to the [employer] store he owns, and she can't reach him. She reports in the past her father did not accept the therapist critique of "how sick their relationship is." She wanted the meeting to have someone else convinced her father of the dysfunctional nature of their relationship. Objective: Vital Signs Temp Pulse Resp BP Pulse Ox 36.3 C 125 H 16 146/100 H 91 L 01/04/17 08:42 01/04/17 08:42 01/04/17 02:00 01/04/17 08:42 01/04/17 08:42 Laboratory Results 12/27/16 18:15 01/03/17 06:30 Obese, female dressed in pajama pants bottom and a regular shirt and jacket. Good eye contact. Speech- choked with tears at times. Mood- Anxious. Affect- Fearful. Thought Process- linear and goal directed.Thought Content- No SI/HI, +AH/VH. Insight - Fair. Judgment - Poor. - Time Spent With Patient Time Spent With Patient: 50 - Pending Discharge Pending Discharge Within 24 Hours: No Pending Discharge Within 48 Hours: Yes Pending Discharge Date: 01/06/17 Pending Discharge Time: 11:00 ICD10 Worksheet Patient Problems: Problems Problem Status Onset Acute psychosis Acute Polysubstance abuse Acute
[2017-01-04] MEDS ORDERED: ACETAMINOPHEN 650 MG/20.3 ML UDCUP PO PRN (16:38)
[2017-01-04] MEDS: IBUPROFEN 600 MG TAB PO PRN (18:17)
[2017-01-04] MEDS: MAG HYDROX/AL HYDROX/SIMETH 30 ML UDCUP PO PRN (19:24)
[2017-01-04] MEDS: MAGNESIUM HYDROXIDE 30 ML UDCUP PO PRN (19:24)
[2017-01-04] MEDS: lamoTRIgine 25 MG TAB PO SCH (19:36)
[2017-01-04] MEDS: TAMSULOSIN HCL 0.4 MG CAP PO SCH (19:36)
[2017-01-04] MEDS: BISACODYL 5 MG EC TAB PO PRN (23:45)
[2017-01-05] MEDS: IBUPROFEN 600 MG TAB PO PRN ×3 (02:45→19:33)
[2017-01-05] MEDS: OLANZapine 5 MG TAB PO PRN ×5 (03:49→22:00)
[2017-01-05] MEDS: ARIPiprazole 10 MG TAB PO SCH (08:52)
[2017-01-05] MEDS: PANTOPRAZOLE SODIUM 40 MG TAB PO SCH (08:52)
[2017-01-05] MEDS: MULTIVITAMINS 1 EACH TAB PO SCH (08:55)
[2017-01-05] MEDS: SENNOSIDES/DOCUSATE SODIUM TAB PO SCH ×2 (08:55→20:44)
[2017-01-05] MEDS: MAG HYDROX/AL HYDROX/SIMETH 30 ML UDCUP PO PRN (09:52)
[2017-01-05] MEDS: NICOTINE 21 MG/24 HR PATCH TD SCH (11:12)
--- NOTE | 2017-01-05 14:51 | SOAPPROG ---
SOAP Progress Note Assessment/Plan: Assessment: Patient with unspecified schizophrenia spectrum and other psychotic disorder along with other hallucinogen Use Disorder, severe, in forced remission a controlled environment, alcohol use disorder, severe, in forced remission in a controlled environment, and a rule out of borderline personality disorder reporting no SI today. She is anxious about talking to her parents about substance abuse treatment She seems more determined to leave her parents and get getting substance abuse treatment; however, she continues to search for their approval, and it does not seem forthcoming [facility] She is fearful of standing up to her parents about substance abuse treatment. She has fears of abandoning her parents and of being abandoned by her parents, and it appears the parents have the same concerns. This web content writer met with Mercy and her parents. They are still looking at facilities. Although Mercy was visibly anxious when talking with her parents, she showed some assertiveness. Plan: Will continue current medications. Encourage DBT skills Encourage dialogue with parents regarding post-hospital follow-up Likely discharge tomorrow. 12/20/16 17:47 12/20/16 18:07 01/02/17 12:44 01/02/17 12:54 01/02/17 12:58 01/02/17 13:04 01/02/17 13:08 01/02/17 13:09 01/03/17 15:37 01/03/17 15:50 01/03/17 15:53 01/03/17 15:54 01/04/17 16:24 01/04/17 16:36 01/04/17 16:40 01/04/17 17:14 01/04/17 17:19 01/05/17 14:48 01/05/17 14:51 01/05/17 15:01 Subjective: She reported her fears to her parents that they just wanted her to come home and keep researching various facilities. She reports she wants to make a decision, but she wants to do more research on the internet. Her father, mother present, but she had nothing to say, reported he fears Mercy will go to a facility, not like it, and they will never see her again after she leaves. Mercy was able to identify her need for treatment and desire to get the treatment before returning to work. Mercy also brought up the topic of her diagnosis of borderline personality disorder and the implications this has in terms of her relationship with her parents. Her father pointed out, with Mercy out of the room, that he felt Mercy was deflecting the blame. He feels he has encouraged Mercy to get out and do things, and she had not been open to venturing out. Objective: Vital Signs Temp Pulse Resp BP Pulse Ox 36.4 C 106 H 16 97/56 L 93 01/05/17 09:30 01/05/17 09:30 01/05/17 00:30 01/05/17 09:30 01/05/17 09:30 Laboratory Results 12/27/16 18:15 01/03/17 06:30 Obese, female sitting on bed with nervous twitch. Anxious tone to voice at times, but quite assertive at other times. Good eye contact. Mood- Anxious, fearful. Affect- Anxious. Thought Process- linear and goal directed. Thought Content - No SI/HI or AH/VH endorsed at this time. - Time Spent With Patient Time Spent With Patient: 35 - Pending Discharge Pending Discharge Within 24 Hours: Yes Pending Discharge Within 48 Hours: Yes Pending Discharge Date: 01/06/17 Pending Discharge Time: 11:00 ICD10 Worksheet Patient Problems: Problems Problem Status Onset Acute psychosis Acute Polysubstance abuse Acute
[2017-01-05] MEDS: TAMSULOSIN HCL 0.4 MG CAP PO SCH (20:44)
[2017-01-05] MEDS: lamoTRIgine 25 MG TAB PO SCH (20:45)
[2017-01-06 06:14] VITALS: BP 94/56; PULSE 103; RESP 15; TEMP 97.8; O2SAT 94
[2017-01-06] MEDS: IBUPROFEN 600 MG TAB PO PRN (06:27)
[2017-01-06] MEDS: ARIPiprazole 10 MG TAB PO SCH (08:09)
[2017-01-06] MEDS: PANTOPRAZOLE SODIUM 40 MG TAB PO SCH (08:10)
[2017-01-06] MEDS: SENNOSIDES/DOCUSATE SODIUM TAB PO SCH (08:54)
[2017-01-06] MEDS: MULTIVITAMINS 1 EACH TAB PO SCH (08:55)
[2017-01-06] MEDS: NICOTINE 21 MG/24 HR PATCH TD SCH (08:55)
[2017-01-06] MEDS: OLANZapine 5 MG TAB PO PRN ×2 (10:37→12:25)
--- NOTE | 2017-01-09 18:26 | BDS ---
[f rep st] BEHAVIORAL HEALTH DISCHARGE SUMMARY ADMISSION DIAGNOSES: Unspecified schizophrenia spectrum and other psychotic disorder; other hallucinogen use disorder, severe, in forced remission in a controlled environment; alcohol use disorder, severe, in forced remission in a controlled environment; and rule out borderline personality disorder. REASON FOR ADMISSION: The patient was admitted to the hospital secondary to overdosing on medications. The patient was feeling suicidal along with reporting auditory and visual hallucinations. HOSPITAL COURSE: While in the hospital, the patient was started on medications for her mood. She was initially started on Abilify for mood and hallucinations, Zyprexa Zydis as needed for agitation, aggression and psychosis, along with Seroquel as needed for sleep. She was later started on an SSRI for depression. which she had also been on prior to her admission to the hospital. However, it was a different SSRI. She was started, in the hospital, on 20 mg of Celexa. She was evaluated at one point in time for a course of ECT, and a second opinion was received from Dr. Rao who explained the risk and benefits of the treatment along with the longevity of the treatment. The patient appeared to lose interest when she found it might interfere with her getting back to work for approximately 2 months. A decision was made to continue her treatment with medications and see if her mood would show further improvement given that it was showing some improvement between her treatment with medications and her time away from drugs. The patient appeared to have some mood lability. She would experience periods when she was doing fine, then she would have other periods in which she became more depressed and anxious. Some of it appeared to center around her interactions with her parents, especially her father. There was a lot of triangulation in this family, which was not particularly helpful given the patient's borderline personality disorder. The patient had learned that suicide was always an option, and when she felt particularly stressed, she become more suicidal. Close to the time of the patient's discharge, we decided on a medication regimen which included Lamictal for her mood and clonidine for anxiety along with elevated blood pressure. The Librium that she had been taking to help with withdrawal symptoms and anxiety, was discontinued given she was not showing any acute signs of withdrawal, except for possibly the elevated blood pressure. She was on Toradol and oxycodone for her abdominal pain. These both were discontinued prior to her discharge, especially in light of the fact that she would not be able to take oxycodone when she went to substance abuse treatment. She was continued on Abilify. She was encouraged to use dialectical behavioral therapy skills. She was also encouraged to assert herself with her father. She was having some difficulties communicating with him in regard to her hopes to go to some type of substance abuse treatment. The patient's father was concerned about the rehabilitation facility in [place] or [place] that had been chosen for the patient. He had done some reviews on the Internet, and found some negative reviews; therefore, he felt that she needed to come home and do more research before she actually went to substance abuse treatment. The patient had some ambivalence about treatment and would waver back and forth as to whether she should go home, or if she should go directly to the substance abuse treatment. She was depending on her father to drive her to a treatment facility, although she did recognize that she could always take the [employer] to the treatment facility, and she had the funds to do so. The patient did attend groups during her hospitalization. She was compliant with medications. She did have 2 episodes where she had self-harming behaviors. One day she banged her head against the wall in her bathroom because she could not find her brush. She also cut herself with the top of a lipstick container that same day. Another day she took a concealer container and began to cut her arms with that, but she was able to notify staff and turn that over to them. LABORATORY DATA: Patient was followed by the hospitalist during her time in the hospital. She was found initially to have elevated liver function tests secondary to alcohol and substance abuse. There was some thought that possibly she had hepatitis, but there was no evidence of jaundice. Her LFTs were rechecked along with a hepatitis panel. The hepatitis panel was negative. Her liver function tests on December 17, 2016 showed an AST of 100, and an ALT of 93 along with an alkaline phosphatase of 108. The AST and ALT, which were both elevated, were trending down, although they were still somewhat elevated on December 22, 2016. The AST was 65 and the ALT was 85. She came in on a potassium supplement and that was stopped during her hospitalization because it was not clear why she was on that. In regard to her abdominal pain there was concern that there was nephrolithiasis versus constipation and bowel distention versus functional abdominal pain syndrome. It was noted that on November 29, [address] did show she had a right upper stone, so there was a confirmed history of nephrolithiasis. She came in on May 25, 2012 again complaining of some right upper quadrant abdominal pain, but the ultrasound was negative, and the suspicion was that it was secondary to alcoholic hepatitis or liver functional pain. She had a UA more recently with microscopic hematuria, which was suggestive of stones. She reported that she had seen a doctor as an outpatient, and a KUB suggested there were right-sided stones. She was on oxycodone and it helped with the pain from the stone. The patient was also reporting some severe pain due to kidney stones. She would have periods where the pain was unbearable in her estimation, and other times within a 24-hour period she was able to manage her pain without problems. She was started on some Zofran to help with nausea. She was started on Flomax to encourage passage of the stone. She was ultimately felt to have nephrolithiasis. She was evaluated to make sure she was not obstructed, and there were no thoughts that she was obstructed. She had been started on Toradol and the recommendation was that it would only be used for 3 days, and it was stopped prior to her discharge from the hospital. Her creatinine trended back down to normal. On December 06 it was found to be 1, although her BUN was elevated at 25 by the , and it had been normal prior to that time. She was to follow up in regard to the nephrolithiasis, and she had an appointment with the urologist at the time of discharge. FAMILY INVOLVEMENT: The patient's parents, especially her father, were very involved in her care during her hospital stay. At one point in time, the patient 's mother did refuse to visit the patient because she was angry at the patient for not agreeing to talk to them during one particular visit when the patient was concerned they would sabotage her going to substance abuse treatment. It appeared that animosity resolved by the time the patient's discharge from the hospital. A meeting was held with the clinical care leader on several occasions with the family. The day prior to the patient's discharge from the hospital, this literary writer did meet with the parents to discuss the patient going to substance abuse treatment. We discussed how dire the patient's prognosis was if she was not able to discontinue her substance usage. The parents listened politely. Mother had nothing to say. Father, at one point in time, expressed the thought that the patient was projecting onto him and her mother her own difficulty socializing with others. He expressed the thought that he supported the patient going to substance abuse treatment. At one point, he had sort of insinuated that the mother was not that open to it; however, the father had concerns that the patient not go to some place that she would not be 100% open to staying at to complete the treatment because he felt if she left early, they would never see her again. He reported she suggested that, at one point in time, that she planned to come to [place] and disappear on the streets. So he felt that if she went to a facility in another state and things did not work out there, that ultimately she would disappear and become homeless in that other state. There was a lot of enmeshment that was detected between the patient and her family. The patient had expressed initially the father was verbally aggressive. It seems like a lot of this was directed towards the mother, and possibly the patient serves the role of protecting the mother from the father, which would make it difficult for her to leave the mother alone with the father. However, she also suggested she serves the role of her father's "ham," so he would also have a hard time letting her go. . The patient did express, during her hospitalization, that past therapists had suggested there was a lot of dysfunction in the family, and that family therapy was warranted because of the enmeshment. The patient seemed open to listening to this and she was trying to assert herself, to a certain extent; however, she did depend on others to try to speak up for her to her father. It is not clear that there was much change in the father's thinking or the enmeshment between the patient and her parents at the time of her discharge from the hospital. DISCHARGE PLAN: The patient was discharged with plans to hopefully travel to either [place] or [place] to [facility], which is a substance abuse rehabilitation center. Her insurance was willing to pay for her to have treatment there. Again, because of the patient's ambivalence and her father's and likely mother's resistance to her going to treatment, it was not clear at the time of discharge if she was going to make any effort to actually make it to treatment. In light of the fact that there was some ambivalence in regard to her following up with substance abuse treatment, she was referred to [facility] and an appointment was set for within a week of her discharge. DISCHARGE MEDICATIONS: The patient was discharged on Abilify 10 mg p.o. daily, Lamictal 25 mg p.o. at bedtime, and clonidine 0.2 mg at bedtime in terms of her psychiatric medications. FOLLOW-UP: She was to follow up with her outpatient urologist, as mentioned earlier, for possible nephrolithiasis. She was encouraged to refrain from using drugs and alcohol. She was encouraged to use dialectical behavioral therapy skills to prevent her self-harming behaviors. At the time of discharge, she was denying any thoughts of hurting herself or others. She was reporting some anxiety. DISPOSITION: She was discharged home with her parents. /[id number]/MODL MTDD
== END 2017-01-06 12:30 | DRG 885 ==
LOC: BBEH 12-18 12:40 → UNDODISIN 12-18 14:40
PROVIDERS: ADMIT Psychiatry & Neurology Psychiatry; ATTEND Psychiatry & Neurology Psychiatry
DX: F20.9 Schizophrenia, unspecified (principal); F29 Unspecified psychosis not due to a substance or known physiological condition; F16.90 Hallucinogen use, unspecified, uncomplicated; F10.20 Alcohol dependence, uncomplicated; F60.3 Borderline personality disorder; K59.00 Constipation, unspecified; Z87.442 Personal history of urinary calculi; Z88.0 Allergy status to penicillin
CPT/HCPCS: 80305; 82607-90; G0472; G0480; J1885

== ENCOUNTER 2016-12-30 12:55 | Emergency (ER) | payer OTHER ==
[2016-12-30] MEDS ORDERED: NS 1,000 ML IV ONE (13:06)
[2016-12-30 13:12] LABS: % IMMATURE GRANULYOCYTES 0.2 % (0.0-1.1); ABSOLUTE IMMATURE GRANULOCYTES 0.01 10^3/uL (0.00-0.10); ADD DIFF? NO; ADD MORPH? NO; ADD SCAN? NO; ATYPICAL LYMPHOCYTE FLAG 30 (0-99); FRAGMENT RBC FLAG 0 (0-99); HEMATOCRIT 38.2 % (38.0-47.0); HEMOGLOBIN 12.6 g/dL (12.6-16.3); LEFT SHIFT FLG 0 (0-99); LIPEMIA HEMOLYSIS FLAG 80 (0-99); MEAN CELL HEMOGLOBIN 30.3 pg (27.9-34.1); MEAN CELL VOLUME 91.8 fL (81.5-99.8); MEAN PLATELET VOLUME 10.2 fL (8.7-11.7); PLATELET CLUMPS FLAG 0 (0-99); PLATELET COUNT 204 10^3/uL (150-400); RED BLOOD CELL COUNT 4.16 10^6/uL (4.18-5.33); RED CELL DISTRIBUTION WIDTH 12.9 % (11.5-15.2)
[2016-12-30] MEDS ORDERED: KETOROLAC 30 MG/1 ML SDV IVP ONE (13:20)
--- NOTE | 2016-12-30 13:23 | EDPHY ---
H & P Time Seen by Provider: 12/30/16 12:56 HPI/ROS: CHIEF COMPLAINT: Right-sided abdominal pain HISTORY OF PRESENT ILLNESS: The patient has a history of chronic nephrolithiasis. She presents to the ED with a several day history of right- sided abdominal and flank pain consistent with prior ureterolithiasis. The patient reportedly is an inpatient on the psychiatric unit here [facility]. She was having a very difficult conversation today with staff at the psychiatric unit as well as her insurance company. She developed an exacerbation of her abdominal pain. The patient denies fever, she denies nausea, vomiting or respiratory symptoms. She reports her symptoms are mild to moderate in nature. She is currently under the care Dr. Cameron from urology. REVIEW OF SYSTEMS: A comprehensive 10 point review of systems is otherwise negative aside from elements mentioned in the history of present illness. Source: Patient Exam Limitations: No limitations - Medical/Surgical History Hx Asthma: No Hx Chronic Respiratory Disease: No Hx Diabetes: No Hx Cardiac Disease: No Hx Renal Disease: Yes Hx Cirrhosis: No Hx Alcoholism: No Hx HIV/AIDS: No Hx Splenectomy or Spleen Trauma: No Other PMH: depression - Social History Smoking Status: Never smoked - Physical Exam Exam: General Appearance: Alert, no distress Eyes: Pupils equal and round no pallor or injection ENT, Mouth: Mucous membranes moist Respiratory: There are no retractions, lungs are clear to auscultation Cardiovascular: Regular rate and rhythm Gastrointestinal: Minimal tenderness to palpation right lower quadrant, mild right CVA tenderness Neurological: A&O, normal motor function, normal sensory exam, normal cranial nerves Skin: Warm and dry, no rashes Musculoskeletal: Neck is supple nontender Extremities: symmetrical, full range of motion Constitutional: Initial Vital Signs Temperature (C) 36.6 C 12/30/16 12:56 Heart Rate 97 12/30/16 12:56 Respiratory Rate 20 12/30/16 12:56 Blood Pressure 128/88 H 12/30/16 12:56 O2 Sat (%) 96 12/30/16 12:56 O2 Delivery Mode Room Air Allergies/Adverse Reactions: Penicillins Allergy (Verified 12/17/16 18:06) Home Medications: Medication Instructions Recorded FLUoxetine [Prozac 10 MG (*)] 10 mg PO DAILY 12/17/16 FLUoxetine [Prozac 20 MG (*)] 40 mg PO DAILY 12/18/16 Herbals/Supplements -Info Only 1 ea PO DAILY 12/18/16 Multivitamins [Multivitamin (*)] 1 each PO DAILY 12/18/16 Omeprazole [Prilosec 20 mg] 20 mg PO DAILY 12/18/16 Potassium Citrate [Urocit-K 10meq 10 meq PO BID 12/18/16 (*)] Ranitidine HCl [Zantac] 300 mg PO DAILY 12/18/16 diphenhydrAMINE [Benadryl 25 MG 50 mg PO Q8HRS 12/18/16 (*)] Hydrocodone/APAP 5/325 [[place] 1 - 2 each PO Q6 PRN #20 tab 12/30/16 5/325] Medical Decision Making ED Course/Re-evaluation: The patient presents emergency department with complaints of flank pain. She is noted to have hematuria in her urinalysis. Additionally the patient has some mild pyuria. The patient states that she is having typical renal colic. She denies fever or dysuria. The patient has refused a KUB and CT scan. The patient will have a urine culture done of her urinalysis as she does have mild pyuria and bacteriuria. My clinical suspicion for pyelonephritis is low. I think it is reasonable to withhold antibiotics for the next 2 days. The patient is currently on our inpatient psychiatric unit. The patient has had marked improvement of her symptoms with IV Toradol. She is now resting calmly and in no acute distress in the room. The patient will be discharged back to the inpatient psychiatric unit. I have encouraged her to follow up with her regular urologist as scheduled. The patient has been given a prescription for [place] to use as needed for severe pain. Differential Diagnosis: Differential diagnosis considered includes pyelonephritis, ureterolithiasis, chronic pain syndrome, metabolic abnormality, appendicitis - Data Points Laboratory Results: Laboratory Results 12/30/16 13:00 12/30/16 13:00 12/30/16 12/30/16 12/30/16 13:15 13:00 13:00 WBC 6.10 10^3/uL 10^3/uL (3.80-9.50) RBC 4.16 10^6/uL L 10^6/uL (4.18-5.33) Hgb 12.6 g/dL g/dL (12.6-16.3) Hct 38.2 % % (38.0-47.0) MCV 91.8 fL fL (81.5-99.8) MCH 30.3 pg pg (27.9-34.1) MCHC 33.0 g/dL g/dL (32.4-36.7) RDW 12.9 % % (11.5-15.2) Plt Count 204 10^3/uL 10^3/uL (150-400) MPV 10.2 fL fL (8.7-11.7) Neut % (Auto) 47.2 % % (39.3-74.2) Lymph % (Auto) 37.5 % % (15.0-45.0) [place] % (Auto) 11.8 % % (4.5-13.0) Eos % (Auto) 3.0 % % (0.6-7.6) Baso % (Auto) 0.3 % % (0.3-1.7) Nucleat RBC Rel Count 0.0 % % (0.0-0.2) Absolute Neuts (auto) 2.88 10^3/uL 10^3/uL (1.70-6.50) Absolute Lymphs (auto) 2.29 10^3/uL 10^3/uL (1.00-3.00) Absolute Monos (auto) 0.72 10^3/uL 10^3/uL (0.30-0.80) Absolute Eos (auto) 0.18 10^3/uL 10^3/uL (0.03-0.40) Absolute Basos (auto) 0.02 10^3/uL 10^3/uL (0.02-0.10) Absolute Nucleated RBC 0.00 10^3/uL 10^3/uL (0-0.01) Immature Gran % 0.2 % % (0.0-1.1) Immature Gran # 0.01 10^3/uL 10^3/uL (0.00-0.10) Sodium 135 mEq/L mEq/L (134-144) Potassium 4.2 mEq/L mEq/L (3.5-5.2) Chloride 101 mEq/L mEq/L (97-110) Carbon Dioxide 28 mEq/l mEq/l (22-31) Anion Gap 6 mEq/L L mEq/L (8-16) BUN 12 mg/dL mg/dL (7-23) Creatinine 1.0 mg/dL mg/dL (0.6-1.0) Estimated GFR > 60 Glucose 74 mg/dL mg/dL (70-100) Calcium 9.2 mg/dL mg/dL (8.5-10.4) Urine Color YELLOW Urine Appearance HAZY Urine pH 6.0 (5.0-7.5) Ur Specific [place] 1.006 (1.002-1.030) Urine Protein NEGATIVE (NEGATIVE) Urine Ketones NEGATIVE (NEGATIVE) Urine Blood 3+ H (NEGATIVE) Urine Nitrate NEGATIVE (NEGATIVE) Urine Bilirubin NEGATIVE (NEGATIVE) Urine Urobilinogen NEGATIVE EU EU (0.2-1.0) Ur Leukocyte Esterase NEGATIVE (NEGATIVE) Urine RBC 50-182 /hpf H /hpf (0-3) Urine WBC 10-15 /hpf H /hpf (0-3) Ur Epithelial Cells TRACE /lpf /lpf (NONE-1+) Calcium Oxalate Crystal PRESENT /hpf /hpf (NONE-1+) Urine Bacteria 3+ /hpf H /hpf (NONE SEEN) Hyaline Casts 1-5 /lpf /lpf (0-1) Urine Mucus TRACE /lpf /lpf (NONE-1+) Ur Culture Indicated? INDICATED H (NI) Urine Glucose NEGATIVE (NEGATIVE) Medications Given: Discontinued Medications Hydrocodone Bitart/Acetaminophen ([place] 5/325) 2 tab PO EDNOW ONE Stop: 12/30/16 15:06 Last Admin: 12/30/16 15:10 Dose: 2 tab Sodium Chloride (Ns) 1,000 mls @ 0 mls/hr IV ONCE ONE PRN Reason: Wide Open Stop: 12/30/16 13:07 Last Admin: 12/30/16 13:47 Dose: 1,000 mls Ketorolac Tromethamine (Toradol) 30 mg IVP EDNOW ONE Stop: 12/30/16 13:21 Last Admin: 12/30/16 13:47 Dose: 30 mg Departure - Departure Disposition: Home, Routine, Self-Care Clinical Impression: Hematuria, Abdominal pain Condition: Good Instructions: Acute Abdominal Pain (ED) Additional Instructions: 1. Continue ibuprofen as needed for pain. 2. Please have your psychiatrist or yourself contact the ED in 2 days to check the results of your urine culture to make sure there is no evidence of a urinary tract infection which requires treatment. 3. Please return to the ED for uncontrolled pain, fever, vomiting or other concerns. 4. Please follow-up with your primary urologist Dr. Cameron as scheduled. 5. [place] as needed for severe pain Referrals: Joseph Cameron MD [Medical Doctor] - As per Instructions Prescriptions: Hydrocodone/APAP 5/325 [[place] 5/325] 1 - 2 each PO Q6 PRN #20 tab PRN Reason: for pain
[2016-12-30 13:24] VITALS: RESP 20; TEMP 97.9
[2016-12-30 13:27] LABS: COLOR YELLOW; LEUKOCYTE ESTERASE,URINE NEGATIVE (NEGATIVE); NITRITE,URINE NEGATIVE (NEGATIVE)
[2016-12-30 13:46] LABS: ANION GAP 6 mEq/L (8-16); CALCIUM 9.2 mg/dL (8.5-10.4); CARBON DIOXIDE 28 mEq/l (22-31); CHLORIDE 101 mEq/L (97-110); GLOMERULAR FILTRATION RATE > 60; GLUCOSE 74 mg/dL (70-100); POTASSIUM 4.2 mEq/L (3.5-5.2); SODIUM 135 mEq/L (134-144)
[2016-12-30 13:55] LABS: BACTERIA 3+ /hpf (NONE SEEN); MUCUS TRACE /lpf (NONE-1+); RBC,URINE 50-182 /hpf (0-3)
[2016-12-30] MEDS ORDERED: HYDROCODONE/APAP 5/325 TAB PO ONE (15:05)
[2016-12-30 15:08] VITALS: BP 104/72; PULSE 100; O2SAT 97
== END 2016-12-30 15:36 | disposition home or self-care (01) ==
LOC: EDUNIT#
DX: R10.31 Right lower quadrant pain (principal); R31.9 Hematuria, unspecified; Z86.59 Personal history of other mental and behavioral disorders
CPT/HCPCS: 96374; J1885